=== PATIENT | male | born 1960 | race Caucasian/White ===

== ENCOUNTER 2020-05-20 15:36 | Outpatient (CLI) | payer OTHER, SELFPAY ==
--- NOTE | ~2020-05-20 | CT_ITS ---
EXAMINATION:CT lung screening DATE: 05/20/2020 15:58 INDICATION: Personal history of tobacco dependence. Smoker who quit 10 years ago with 30 pack year hi story. TECHNIQUE: Computed tomography (CT) of the chest was performed without intravenous contrast. Automate d exposure control and iterative reconstruction technique were employed. The dose-length product (DLP ) was 305.18 mGy-cm. COMPARISON: None. FINDINGS: The lungs demonstrate mild atelectasis. There is a 15 mm nodule in lingula in an area of di scoid atelectasis. No pleural effusion. The heart size is normal. There are coronary artery calcifica tions. No pericardial effusion. There is diffuse hepatic steatosis. There are bridging endplate osteo phytes at multiple levels in the spine, consistent with diffuse idiopathic skeletal hyperostosis (DIS H). There is mild chronic anterior wedging of multiple thoracic vertebral bodies. There is severe tho racic spondylosis. IMPRESSION: 1. Lung-RADS category 4B: Suspicious. PET/CT is recommended. Reviewed, dictated and finalized at location B. UAGE TEACHER
== END 2020-05-20 15:37 | disposition home or self-care (01) ==
PROVIDERS: PCP Internal Medicine; Visit Provider Nurse Practitioner Family
DX: Z12.2 Encounter for screening for malignant neoplasm of respiratory organs (principal); Z87.891 Personal history of nicotine dependence; R91.8 Other nonspecific abnormal finding of lung field
CPT/HCPCS: G0297

== ENCOUNTER 2020-06-04 10:24 | Outpatient (CLI) | payer OTHER, SELFPAY ==
--- NOTE | ~2020-06-04 | PE_ITS ---
EXAMINATION: PET skull to mid thigh DATE: 06/04/2020 13:00 INDICATION: Solitary pulmonary nodule. TECHNIQUE: Blood glucose level was 170 mg/dL. 8.231 mCi of 18-fluorodeoxyglucose (18-FDG) was adminis tered i.v. Low dose computed tomography (CT) images were acquired from the base of the brain to the p roximal thighs for attenuation correction and anatomic localization. Automated exposure control was e mployed. Dose-length product (DLP) was 1184 mGy-cm. Positron emission tomography (PET) images were ac quired in the same distribution. COMPARISON: Chest CT 05/20/2020 FINDINGS: Head/neck: There are no pathologically enlarged lymph nodes. Chest: There is a 12 mm nodule in lingula without increased activity. No pleural effusion. The heart size is normal. No pericardial effusion. There are coronary artery calcifications. There are no patho logically enlarged lymph nodes. Abdomen/pelvis/proximal thighs: There is diffuse hepatic steatosis. The spleen, gallbladder, pancreas , adrenal glands, and kidneys are normal. There are no dilated loops of bowel. There is mild periport al lymphadenopathy without increased activity, likely reactive. There is no free intraperitoneal flui d. There are bilateral inguinal hernias containing fat. There is no osseous malignancy. IMPRESSION: 1. 12 mm nodule in the lingula without increased activity, probably benign. Noncontrast low-dose ches t CT is recommended in 6 months. Reviewed, dictated and finalized at location A. HANDISE ASSOCIATE IMPRESSION: 1. 12 mm nodule in the lingula without increased activity, probably benign. Non contrast low-dose chest CT is recommended in 6 months.
[2020-06-04 11:33] LABS: Glucose Point of Care 170 (65-105)
== END 2020-06-04 10:25 | disposition home or self-care (01) ==
PROVIDERS: PCP Internal Medicine; Visit Provider Nurse Practitioner Family
DX: R91.1 Solitary pulmonary nodule (principal)
CPT/HCPCS: 78815; A9552

== ENCOUNTER → 2021-05-06 09:35 | Outpatient (CLI) | payer OTHER, SELFPAY ==
--- NOTE | ~2021-05-06 | CT_ITS ---
EXAMINATION:CT diagnostic chest wo con DATE: 05/06/2021 09:52 INDICATION: Solitary pulmonary nodule. TECHNIQUE: Computed tomography (CT) of the chest was performed without intravenous contrast. Automate d exposure control and iterative reconstruction technique were employed. The dose-length product (DLP ) was 164.31 mGy-cm. COMPARISON: PET CT 06/04/2020, chest CT 05/20/2020 FINDINGS: The lungs demonstrate minimal atelectasis. There is a 10 mm nodule within discoid atelectas is in the lingula, decreased from 14 mm on 05/20/2020. No pleural effusion. The heart size is normal. There are coronary artery calcifications. No pericardial effusion. There is a coarse calcification in right thyroid lobe. There is severe thoracic spondylosis with mild chronic anterior wedging of multi ple vertebral bodies. There are bridging endplate osteophytes at multiple levels in the spine, consis tent with diffuse idiopathic skeletal hyperostosis (DISH). IMPRESSION: 1. Lung-RADS category 2: Benign appearance or behavior. Continue annual screening with noncontrast lo w-dose chest CT in 12 months. Reviewed, dictated and finalized at location B. HER FOREMAN IMPRESSION: 1. Lung-RADS category 2: Benign appearance or behavior. Continue annual screeni ng with noncontrast low-dose chest CT in 12 months.
== END ==
PROVIDERS: PCP Internal Medicine; Visit Provider Physician Assistant
DX: R91.1 Solitary pulmonary nodule (principal)
CPT/HCPCS: 71250

== ENCOUNTER → 2022-12-17 10:56 | Outpatient (CLI) | payer OTHER, SELFPAY ==
--- NOTE | ~2022-12-17 | CT_ITS ---
CT Scan of the Chest without Contrast: Clinical Indication: Lung cancer screening, personal history of nicotine dependence Technique: Contiguous sections were acquired throughout the chest without intravenous contrast. Dose reduction technique was used on this scan by utilizing automated exposure control and iterative recon struction technique. The dose-length product (DLP) was 156.39 mGy-cm. COMPARISON: 05/06/2021 and 05/20/2020 Findings: There is no evidence of any significant mediastinal, hilar or axillary lymphadenopathy. Coronary ansley ry calcifications are present. There is no evidence of pleural or pericardial effusion. The lungs are clear. No pulmonary nodules or infiltrates are noted. Images through the upper abdomen reveal no abnormalities. Impression: Lung RADS 1: Negative. 12 month follow-up screening CT advised. Reviewed, dictated and finalized at [facility]. Impression: Lung RADS 1: Negative. 12 month follow-up screening CT advised.
== END ==
PROVIDERS: PCP Internal Medicine; Visit Provider Internal Medicine
DX: Z12.2 Encounter for screening for malignant neoplasm of respiratory organs (principal); Z87.891 Personal history of nicotine dependence
CPT/HCPCS: 71271

== ENCOUNTER 2023-12-18 08:32 | Outpatient (CLI) | payer OTHER, SELFPAY ==
--- NOTE | ~2023-12-18 | US_ITS ---
EXAMINATION: US right upper quadrant DATE: 12/18/2023 09:07 INDICATION: Epigastric pain TECHNIQUE: Multiple grayscale and Doppler ultrasound images of the right upper quadrant were obtained . COMPARISON: None available. FINDINGS: The visualized portions of the pancreas are normal. The liver is enlarged with increased ec hogenicity. No surface nodularity. Normal hepatopetal flow in the main portal vein. The gallbladder i s normal with no abnormal wall thickening, pericholecystic fluid or stones. The common bile duct darby ures 4 mm. There was no sonographic Hurd sign. IMPRESSION: Hepatomegaly. Echogenic liver, most commonly due to steatosis but also can be seen with hepatitis and fibrosis. Reviewed, dictated and finalized at location K. IMPRESSION: Hepatomegaly. Echogenic liver, most commonly due to steatosis but also can be seen with hepat itis and fibrosis.
== END 2023-12-18 08:33 ==
LOC: MICIMG 08:33
PROVIDERS: PCP Internal Medicine; Visit Provider Internal Medicine
DX: R16.0 Hepatomegaly, not elsewhere classified (principal)
CPT/HCPCS: 76705

== ENCOUNTER 2024-02-03 13:21 | Outpatient (CLI) | payer OTHER, SELFPAY ==
--- NOTE | ~2024-02-03 | CT_ITS ---
EXAMINATION:CT lung screening DATE: 02/03/2024 13:39 INDICATION: Personal history of nicotine dependence. Current smoker with 37.5 pack-year history. TECHNIQUE: Computed tomography (CT) of the chest was performed without intravenous contrast. Automate d exposure control and iterative reconstruction technique were employed. The dose-length product (DLP ) was 196.33 mGy-cm. COMPARISON: Chest CT 12/17/22 FINDINGS: The lungs demonstrate mild atelectasis. A calcified left lung nodule is consistent with old granulomatous disease. No pleural effusion. The heart size is normal. There are coronary artery calc ifications. No pericardial effusion. There is diffuse hepatic steatosis. There is mild chronic anteri or wedging of multiple vertebral bodies. There are bridging endplate osteophytes at multiple levels i n the spine, consistent with diffuse idiopathic skeletal hyperostosis (DISH). There is severe thoraci c spondylosis. IMPRESSION: 1. Lung-RADS category 1: Negative. Continue annual screening with noncontrast low-dose chest CT in 12 months. Reviewed, dictated and finalized at location A. IMPRESSION: 1. Lung-RADS category 1: Negative. Continue annual screening with noncontrast l ow-dose chest CT in 12 months.
== END 2024-02-03 13:22 ==
LOC: MICIMG 13:22
PROVIDERS: PCP Internal Medicine; Visit Provider Internal Medicine
DX: Z12.2 Encounter for screening for malignant neoplasm of respiratory organs (principal); Z87.891 Personal history of nicotine dependence
CPT/HCPCS: 71271

== ENCOUNTER 2024-04-05 08:33 | Outpatient (CLI) | payer OTHER, SELFPAY ==
--- NOTE | ~2024-04-05 | CT_ITS ---
EXAMINATION: CT abdomen w con DATE: 04/05/2024 09:54 INDICATION: Epigastric abdominal pain. TECHNIQUE: Computed tomography (CT) of the abdomen was performed with 100 mL Omnipaque 350 intravenou s contrast. Automated exposure control and iterative reconstruction technique were employed. The dose -length product was 691.15 mGy-cm. COMPARISON: Chest CT 02/03/2024 FINDINGS: The visualized portions of lung bases demonstrate mild atelectasis. No pleural effusion. Th e heart size is normal. There are coronary artery calcifications. No pericardial effusion. There is a 10 mm cyst in the liver. There is diffuse hepatic steatosis. The gallbladder, spleen, pancreas, adre nal glands, and right kidney are normal. There is a 4 mm cyst in left kidney. Aortic atherosclerosis is noted. There is diverticulosis of the colon without evidence of diverticulitis. The visualized por tion of the appendix is normal. There are no dilated loops of bowel. There are no pathologically enla rged lymph nodes. There is no free intraperitoneal fluid. There is mild thoracic spondylosis and mode rate lumbar spondylosis. There are bridging endplate osteophytes at multiple levels in the thoracic s pine, consistent with diffuse idiopathic skeletal hyperostosis (DISH). IMPRESSION: 1. Diffuse hepatic steatosis. Reviewed, dictated and finalized at location A.
[2024-04-05 09:24] LABS: Estimated Glomerular Filt Rate > 60
== END 2024-04-05 08:34 | disposition home or self-care (01) ==
LOC: MICIMG 08:34
PROVIDERS: PCP Internal Medicine; Visit Provider Internal Medicine
DX: R10.13 Epigastric pain (principal); K76.0 Fatty (change of) liver, not elsewhere classified
CPT/HCPCS: 74160; Q9967

== ENCOUNTER 2025-03-28 14:08 | Inpatient (IN) | payer OTHER, SELFPAY ==
--- NOTE | ~2025-03-28 | CT_ITS ---
EXAMINATION: CT chest abdomen pelvis w con DATE: 03/28/2025 16:58 INDICATION: Suspected malignancy. Epigastric mass. Hepatomegaly. TECHNIQUE: Computed tomography (CT) of the chest, abdomen, and pelvis was performed with 100 mL Omnipaque-350 intravenous contrast. Automated exposure control and iterative reconstruction technique were employed. The dose-length product was 888.30 mGy-cm. COMPARISON: 04/05/2024 FINDINGS: CHEST CT: There are multiple scattered bilateral pulmonary nodules and masses with random distribution consistent with metastatic disease measuring up to 4.3 cm in the left lung and 4.1 cm the right lung. No pneumonia, pulmonary edema or pleural effusion. Heart size is normal. Small pericardial effusion. Likely malignant 9.3 x 7.4 x 7.0 cm subcarinal mediastinal mass which exerts mass effect upon the right side of the distal esophagus in the posterior wall of the left atrium. Small sliding-type hiatal hernia. Severe thoracic spondylosis with chronic appearing mild anterior wedging of a few mid thoracic vertebral bodies. ABDOMEN/PELVIS CT: There are multiple hypoenhancing hepatic masses the largest at the caudal right hepatic lobe measuring up to 9.6 cm. Gallbladder, spleen, pancreas, bilateral adrenal glands and right kidney are normal. 9 mm exiting cyst at the posterior medial upper pole of the left kidney. Prostatomegaly measuring 6.1 x 4.1 cm with 3 cm mass at the right peripheral zone of the prostate. Decompressed bladder is unremarkable. No bowel obstruction or abnormal bowel wall thickening. Normal appendix. No pathologically enlarged abdominal or pelvic lymphadenopathy. Small bilateral fat-containing inguinal hernias. Transitional L1 segment with right- sided hypoplastic riblets. Mild to moderate lumbar spondylosis. No suspicious lytic blastic bone lesions. IMPRESSION: 1. Multiple pulmonary nodules and hepatic masses consistent with metastatic disease. As a larger subcarinal mass abutting the esophagus which could also represent metastatic lymphadenopathy although also raises suspicion for a primary malignancy arising from the distal esophagus or the intrathoracic st omach with small sliding-type hiatal hernia. Consider ultrasound-guided liver biopsy. 2. 3 cm mass in the right peripheral zone of the enlarged prostate. Correlate with PSA level. Reviewed, dictated and finalized at location A. IMPRESSION: 1. Multiple pulmonary nodules and hepatic masses consistent with metastatic dis ease. As a larger subcarinal mass abutting the esophagus which could also repre sent metastatic lymphadenopathy although also raises suspicion for a primary ma lignancy arising from the distal esophagus or the intrathoracic stomach with sm all sliding-type hiatal hernia. Consider ultrasound-guided liver biopsy. 2. 3 cm mass in the right peripheral zone of the enlarged prostate. Correlate w ith PSA level.
[2025-03-28 14:15] VITALS: BP 136/69; PULSE 91; RESP 20; TEMP 37.5; O2SAT 98
--- NOTE | 2025-03-28 16:18 | ED.ABDPAIN ---
HPI - Abdominal Pain General Chief Complaint: Abdominal Pain Stated Complaint: abdominal pain, right rib pain Time Seen by Provider: 03/28/25 16:06 History of Present Illness HPI narrative: 64-year-old male presenting to the emergency department with vague abdominal complaints including early satiety, lack of appetite, epigastric palpable mass, nauseousness, dark urine, unintentional 14 lb weight loss in 2 weeks. Recently been seen by his primary doctor for lesion on his tongue which is scheduled to be biopsied and excised on outpatient basis in the coming few days. Denies any fever, chills, night sweats. No history of malignancy or strong family history of malignancy. Denies any current smoking use. Previously drank alcohol but no longer. Denies any drug use. Has not tried anything for symptom control at home. Related Data Home Medications ?Medication ?Instructions ?Recorded ?Confirmed ?Last Taken ?Type hydrocodone 7.5 mg-acetaminophen 1 tablet PO Q8H PRN pain 04/12/20 03/28/25 03/25/25 History 325 mg tablet (Eustace) atorvastatin 20 mg tablet 20 mg PO QHS 04/24/21 03/28/25 03/27/25 History ascorbic acid (vitamin C) 1,000 mg 1,000 mg PO QHS 03/28/25 03/28/25 03/27/25 History tablet (Vitamin C) aspirin 81 mg tablet 81 mg PO QHS 03/28/25 03/28/25 03/27/25 History cinnamon bark 500 mg capsule 500 mg PO QHS 03/28/25 03/28/25 03/27/25 History (Cinnamon) [id number]-[id number] tablet 1 tablet PO QHS 03/28/25 03/28/25 03/27/25 History Allergies Allergy/AdvReac Type Severity Reaction Status Date / Time No Known Allergies Allergy Verified 03/28/25 21:32 Review of Systems Review of Systems: As reviewed [facility]PI [facility] Past Medical History Medical History Pulmonary nodule History of neck problems History of back problems Testicular hypofunction Hyperlipidemia Sleep apnea, unspecified Surgical History Surgical History History of colonoscopy History of surgery on arm Family History Family History (Updated 03/28/25 @ 21:49 by Giselle Gil RN) Father Cerebrovascular accident, Onset Age: 65 Sibling Family history of kidney disease, Onset Age: 34 Family history of congestive heart failure, Onset Age: 50 Family history of sleep apnea Coronary artery disease of bypass graft of [place] heart with stable angina pectoris Mother Family history of malignant neoplasm of cervix, Onset Age: 63 Social History Social History Social History: Quit cigarettes 2008 but continues to smoke a cigars about 1-2 per day. Smoking packs per day: 1.5 Smoking cigarettes per day: 30.0 Years smoked: 40 Smoking pack-years: 60.00 Smoking status: Former smoker Second hand tobacco smoke exposure: Yes Smoking end date: 06/14/03 Alcohol intake: former Drinks per week: 12 Alcohol use details: Beers Substance use: never Lack of Transportation: No Lack of Food: Never True Current Housing: I Have Housing Concerned About Future Housing: No Difficulty Paying Gas/Electric Bills: No Difficulty Paying for Meds: No Currently Unemployed: No Education: High School Diploma/GED Difficulty w/ Childcare or Family Care: No Spiritual care concerns: No Exam Narrative: GENERAL: [Well-appearing, well-nourished, and in no acute distress.] HEAD: [Normocephalic, atraumatic.] EYES: [PERRLA and EOMI.] ENT: Nares clear, no rhinorrhea or epistaxis. Mucous membranes moist. Dry lesion to the right lateral tongue edge, nontender, not anterior bleeding. NECK: Supple. CHEST: [Clear to auscultation. No respiratory distress.] HEART: [Regular rate and rhythm]. No murmur heard. [Normal peripheral pulses.] ABDOMEN: Mildly distended abdomen but soft. Tender in the epigastrium with a palpable epigastric mass. Hepatomegaly palpable approximately 4 cm below the right costal edge. Tenderness reproducible right rib cage but no overlying skin changes. No overlying deformity or step-off. EXTREMITIES: Normal range of motion. [No edema.] SKIN: Warm, dry, no rash. NEURO: [No focal deficits]. Alert and oriented [x3.] PSYCH: [Normal mood and affect.] Course Vital Signs Vital signs: Vital Signs Temperature 37.5 C 03/28/25 14:15 Pulse Rate 91 03/28/25 14:15 Respiratory Rate 20 03/28/25 14:15 Blood Pressure 136/69 03/28/25 14:15 Pulse Oximetry 98 03/28/25 14:15 Oxygen Delivery Room Air 03/28/25 14:15 Temperature 37.3 C 03/28/25 21:15 Pulse Rate 99 03/28/25 21:15 Respiratory Rate 16 03/28/25 21:15 Blood Pressure 135/78 03/28/25 21:15 Pulse Oximetry 94 03/28/25 21:15 Oxygen Delivery Room Air 03/28/25 14:15 MDM - Abdominal Pain MDM Narrative Medical decision making narrative: 64-year-old male presenting to the emergency department with vague abdominal complaints including early satiety, lack of appetite, epigastric palpable mass, nauseousness, dark urine, unintentional 14 lb weight loss in 2 weeks. Recently been seen by his primary doctor for lesion on his tongue which is scheduled to be biopsied and excised on outpatient basis in the coming few days. Denies any fever, chills, night sweats. No history of malignancy or strong family history of malignancy. Denies any current smoking use. Previously drank alcohol but no longer. Denies any drug use. Has not tried anything for symptom control at home. Examination shows some concerning abdominal findings including mildly distended abdomen but soft. Tender in the epigastrium with a palpable epigastric mass. Hepatomegaly palpable approximately 4 cm below the right costal edge. Tenderness reproducible right rib cage but no overlying skin changes. No overlying deformity or step-off. Patient is hemodynamically stable. No signs of icterus or jaundice examination. He is awake alert oriented and mentating appropriately. Given his vague complaints as well as weight loss and abdominal findings concern for malignancy is high. Discussed this with the patient and will obtain a broad workup including CT scans of the chest abdomen pelvis with IV contrast will laboratory studies urinalysis ordered. CT scan was independently reviewed and appears to have multiple nodule risen metastatic disease evident. Radiology confirms subcarinal mass likely esophageal malignancy with metastatic lymphadenopathy as well as diffuse pulmonary nodules and hepatic masses. No leukocytosis. Elevated liver function panel likely secondary to the metastatic disease. I updated the patient and the family members regarding the findings on my concern for metastatic malignancy in cancer based on findings and historical features. Discussed the case with the oncologist Dr. John ferrara as well as the GI doctor Dr. Yepez regarding plan of care. Patient will be made NPO for a endoscopy and possible biopsy tomorrow morning. Spoke to the hospitalist who accepted the patient to a medical-surgical bed for admission and evaluation tomorrow by specialists from multiple teams. Discussed multiple options and treatment plans with the family members and goals of care. They would like to pursue treatment options and admission for biopsy and remaining evaluation. Admission orders now placed. Medical Records Attestation: I reviewed the patient's medical records. Lab Data Attestation: I reviewed the patient's lab results. 03/28/25 16:18 03/28/25 16:41 Labs: Lab Results 03/28/25 03/28/25 03/28/25 Range/Units 16:18 16:19 16:41 WBC 8.5 (4.5-10.0) K/mm3 RBC 5.47 (4.6-6.20) M/mm3 Hgb 14.4 (14.0-18.0) g/dL Hct 46.6 (42.0-52.0) % MCV 85.2 (80-100) fl MCH 26.3 (26-34) pg MCHC 30.9 L (32-36) g/dl RDW 14.9 H (11.5-14.5) % Plt Count 273 (150-375) k/mm3 MPV 9.5 (7.4-10.4) fl Immature Gran % (Auto) 0.6 H (0-0.5) % Neut % (Auto) 77.5 H (45.5-73.1) % Lymph % (Auto) 10.7 L (18.3-44.2) % [place] % (Auto) 10.2 H (2.6-8.5) % Eos % (Auto) 0.4 (0-4.4) % Baso % (Auto) 0.6 (0.2-1.2) % Lymph # (Auto) 0.91 (0.9-3.2) K/mm3 [place] # (Auto) 0.9 H (0.1-0.6) K/mm3 Eos # (Auto) 0.0 (0-0.3) K/mm3 Baso # (Auto) 0.1 (0.0-0.1) K/mm3 Abs Immat Gran (auto) 0.05 H (0.00-0.031) K/mm3 Absolute Neuts (auto) 6.6 (1.3-6.7) K/mm3 Absolute Nucleated RBC 0.000 (0.0-0.012) K/mm3 Nucleated RBC % 0.0 (0.0-0.2) % PT 14.5 (11.1-14.7) Seconds INR 1.1 APTT 36.3 (22.3-36.8) Seconds Sodium 134 L (137-145) mmol/L Potassium 4.4 (3.4-5.0) mmol/L Chloride 95 L (98-107) mmol/L Carbon Dioxide 28 (22-30) mmol/L Anion Gap 11 (4-12) mmol/L BUN 11 (9-20) mg/dL Creatinine 0.84 0.90 (0.7-1.3) mg/dL Estim Creat Clear Calc 86 81 ml/min Estimated GFR > 60 > 60 (59 - ) Glucose 100 (65-110) mg/dL Calcium 9.6 (8.4-10.2) mg/dL Total Bilirubin 1.7 H (0.2-1.3) mg/dL AST 149 H (17-59) U/L ALT 107 H (6-50) U/L Alkaline Phosphatase 602 H (38-126) U/L Total Creatine Kinase 91 (55-170) U/L Total Protein 9.1 H (6.3-8.2) g/dL Albumin 4.2 (3.5-5.1) g/dL Lipase 407 H (23-300) U/L Urine Color (Yellow) Urine Appearance (Clear) Urine pH (5.0-9.0) Ur Specific [place] (1.001-1.035) Urine Protein (Negative) mg/dL Urine Glucose (UA) (Negative) mg/dL Urine Ketones (Negative) mg/dL Ur Blood (Man) (Negative) Urine Nitrate (Negative) Urine Bilirubin (Negative) Urine Urobilinogen (<2.0) mg/dL Leukocyte Esterase Rfl (Negative) JOSLYN/UL Urine RBC (0-2) /hpf Urine WBC (0-3) /hpf Ur Squamous Epith Cells (Few) /hpf Urine Bacteria /hpf Urine Casts 10/15/25 Range/Units 17:00 WBC (4.5-10.0) K/mm3 RBC (4.6-6.20) M/mm3 Hgb (14.0-18.0) g/dL Hct (42.0-52.0) % MCV (80-100) fl MCH (26-34) pg MCHC (32-36) g/dl RDW (11.5-14.5) % Plt Count (150-375) k/mm3 MPV (7.4-10.4) fl Immature Gran % (Auto) (0-0.5) % Neut % (Auto) (45.5-73.1) % Lymph % (Auto) (18.3-44.2) % [place] % (Auto) (2.6-8.5) % Eos % (Auto) (0-4.4) % Baso % (Auto) (0.2-1.2) % Lymph # (Auto) (0.9-3.2) K/mm3 [place] # (Auto) (0.1-0.6) K/mm3 Eos # (Auto) (0-0.3) K/mm3 Baso # (Auto) (0.0-0.1) K/mm3 Abs Immat Gran (auto) (0.00-0.031) K/mm3 Absolute Neuts (auto) (1.3-6.7) K/mm3 Absolute Nucleated RBC (0.0-0.012) K/mm3 Nucleated RBC % (0.0-0.2) % PT (11.1-14.7) Seconds INR APTT (22.3-36.8) Seconds Sodium (137-145) mmol/L Potassium (3.4-5.0) mmol/L Chloride (98-107) mmol/L Carbon Dioxide (22-30) mmol/L Anion Gap (4-12) mmol/L BUN (9-20) mg/dL Creatinine (0.7-1.3) mg/dL Estim Creat Clear Calc ml/min Estimated GFR (59 - ) Glucose (65-110) mg/dL Calcium (8.4-10.2) mg/dL Total Bilirubin (0.2-1.3) mg/dL AST (17-59) U/L ALT (6-50) U/L Alkaline Phosphatase (38-126) U/L Total Creatine Kinase (55-170) U/L Total Protein (6.3-8.2) g/dL Albumin (3.5-5.1) g/dL Lipase (23-300) U/L Urine Color Dark yellow (Yellow) Urine Appearance Clear (Clear) Urine pH 6.0 (5.0-9.0) Ur Specific [place] 1.025 (1.001-1.035) Urine Protein Trace (Negative) mg/dL Urine Glucose (UA) Negative (Negative) mg/dL Urine Ketones 1+ H (Negative) mg/dL Ur Blood (Man) Negative (Negative) Urine Nitrate Negative (Negative) Urine Bilirubin 1+ H (Negative) Urine Urobilinogen 2.0 H (<2.0) mg/dL Leukocyte Esterase Rfl Trace H (Negative) JOSLYN/UL Urine RBC 0-2 (0-2) /hpf Urine WBC 0-5 (0-3) /hpf Ur Squamous Epith Cells None seen (Few) /hpf Urine Bacteria None seen /hpf Urine Casts 0-2 Imaging Data Attestation: I personally reviewed and interpreted this imaging study as follows: My impression: Impressions Chest/Abdomen/Pelvis CT 03/28/25 17:01 IMPRESSION: 1. Multiple pulmonary nodules and hepatic masses consistent with metastatic disease. As a larger subcarinal mass abutting the esophagus which could also represent metastatic lymphadenopathy although also raises suspicion for a primary malignancy arising from the distal esophagus or the intrathoracic stomach with small sliding-type hiatal hernia. Consider ultrasound-guided liver biopsy. 2. 3 cm mass in the right peripheral zone of the enlarged prostate. Correlate with PSA level. Radiologist's impression: ITS Impressions Chest/Abdomen/Pelvis CT 03/28/25 17:01 IMPRESSION: 1. Multiple pulmonary nodules and hepatic masses consistent with metastatic disease. As a larger subcarinal mass abutting the esophagus which could also represent metastatic lymphadenopathy although also raises suspicion for a primary malignancy arising from the distal esophagus or the intrathoracic stomach with small sliding-type hiatal hernia. Consider ultrasound-guided liver biopsy. 2. 3 cm mass in the right peripheral zone of the enlarged prostate. Correlate with PSA level. Discharge Plan Discharge Clinical Impression: Concern about cancer without diagnosis, Esophageal mass, Multiple pulmonary nodules, Liver masses Patient Disposition: Still a Patient Condition: Stable
--- OUTSIDE RECORDS SUMMARY | 2025-03-28 16:26 | XMS_ITS | Clinical Summary ---
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 Gender Identity Not on file Sexual Orientation Not on file Plan of Treatment Health Maintenance Due Date Last Done Comments Colorectal Cancer Screening Colonoscopy (10 Years) 1961 Annual Physical 1964 Hepatitis C 09/07/1979 Pneumococcal Vaccine: 50+ Years (1 of 1 - PCV) 09/07/2011 Influenza Adult (#1) 2025 03/21/2024, 04/02/2023, 04/13/2022, Additional history exists DTaP, Tdap and Td Vaccines (2 - Td or Tdap) 08/24/2027 08/23/2017 RSV Immunization or 60+ Years (1 - 1-dose 75+ series) 2036 Zoster Vaccines Completed 12/03/2021, 06/13/2021 COVID-19 Vaccine Completed 03/30/2024, , 03/26/2023, Additional history exists Hepatitis A Vaccines Aged Out No long er eligible based on patient's age to complete this topic Meningococcal B Vaccine Aged Out No l onger eligible based on patient's age to complete this topic Meningococcal Vaccine Aged Out No kelsi danuta eligible based on patient's age to complete this topic RSV Immunizations Under 20 Months Aged Out No longer eligible based on patient's age to complete this topic Insurance [employer] Care Teams Director Talent Relationship Specialty Start Date End Date Jordan Arrieta MD [address] [phone] PCP - General INTERNAL MEDICINE 04/20/24
--- OUTSIDE RECORDS SUMMARY | 2025-03-28 16:26 | XMS_ITS | Data Portability ---
Author Organization [facility], Main Office Address [address] [place] [address] Care Team Providers Care Wage And Salary Administrator Name Role Phone VIK ARRIETA Primary Care Provider Assessment No assessment recorded. Plan of Treatment Reminders Order Date Submit Date Provider Last Modified By Organization Details Last Modified Time Details Appointments Any 10 2024 04:00P Shanta Arrieta MD Not available Not available Not available Surgery 2024 10:00A Shanta Hernandez MD Not available Not available Not available Post-Op 15 2024 03:15P Shanta Hernandez MD Not available Not available Not available Lab HbA1c (hemoglob in A1c), blood 2024 025 [id number] [facility], [address] , [place], [address], 11/08/2024 09:56:28 lipid panel, serum 2024 025 [id number] [facility], [address] , [place], [address], 11/08/2024 09:56:27 CMP, serum or plasma 2024 025 [id number] [facility], [address] , [place], [address], 11/08/2024 09:56:27 TSH, serum or plasma 2024 025 [id number] [facility], [address] , [place], [address], 11/08/2024 09:56:27 T4, free, serum 2024 025 [id number] [facility], [address], [place], [address], 11/08/2024 09:56:27 CBC w/ auto diff 2024 [id number] [facility], [address], [place], [address], 11/08/2024 09:56:28 JUDE + rf (antinucl ear antibodie s + rheumatoi d factor), quantitat sarah, serum 2024 025 [facility], [address] , [place], [address], 10/31/2024 11:47:59 C-reactiv e protein, quantitat sarah, serum or plasma 2024 025 [facility], [address] [facility], [place], [address], 11/21/2024 23:29:22 dsDNA Ab, serum 2024 [facility]25 [facility], [address] , [place], [address], 11/21/2024 23:29:20 scleroder ma (scl-70) Ab, serum 2024 025 [facility], [address] [facility], [place], [address], 10/31/2024 11:47:59 ccp (cyclic citrullin ated peptide) iga+igg, serum 2024 025 [facility], [address] [facility], [place], [address], 10/31/2024 11:47:53 sjogren antibody panel (ssa, ssb, ro, la), serum 2024 025 [facility], [address] [facility], [place], [address], 10/31/2024 11:47:54 rf (rheumato id factor), serum 2024 025 [facility], [address], [place], [address], 11/21/2024 23:29:21 Guzman BISHOP Ab + [employer] FLOOR TECH BISHOP Ab, quant immunoass ay, serum 2024 025 [facility], [address], [place], [address], 10/31/2024 11:47:58 uric acid, serum or plasma 2024 025 [facility], [address], [place], [address], 11/21/2024 23:29:16 drug screen, urine 2024 025 [id number] [facility], [address], [facility], [place], [address], 11/08/2024 09:56:28 amylase, serum or plasma 2023 024 [id number] [facility], [address], [place], [address], 04/05/2024 16:47:22 lipase, serum or plasma 2023 024 [id number] [facility], [address] , [place], [address], 04/05/2024 16:47:22 HbA1c (hemoglob in A1c), blood 2023 024 [id number] [facility], [address] , [place], [address], 04/05/2024 16:47:22 lipid panel, serum 2023 024 [id number] [facility], [address], [place], [address], 04/05/2024 16:47:21 CMP, serum or plasma 2023 024 [facility], [address], [place], [address], 04/05/2024 16:47:21 CBC w/ auto diff 2023 024 [facility], [address], [place], [address], 04/05/2024 16:47:21 Referral None recorded. Procedures None recorded. Surgeries excision, tongue lesion, anterior (SURG) 2024 025 [email or web address] Not available 03/15/2025 11:10:01 Imaging None recorded. Medication Orders None recorded. Patient TargetsNo targets recorded. Patient Instructions Encounter Date Encounter Id Patient Instructions Last Modified By Organization Details Last Modified Time 03/21/2024 [id number] Epigastric abdominal pain etiology is obscure. 2. Hyperlipidemia 3. Type 2 diabetes uncontrolled and obesity class one. Plan to try to see if we can get a CT scan of the abdomen with contrast along with blood work. Needs to be on diabetic medication but has refused to take much of the medication in the past. Will check a CBC, CMP, lipid, hemoglobin A1c, amylase, lipase and try to set up with a CT scan of the abdomen or abdomen and pelvis preferably with contrast. May need further evaluation since there has been elevation of liver enzymes in the past. Likely secondary to the fatty liver. Additional Orders - Directives - Recommendations 1. CT of scan of the abdomen or abdomen and pelvis with contrast for persistent recurrent epigastric abdominal pain that is been on responsive to medical management. Keep Appointment: Diana 05 04 2024 10:00 AM [place] Keep Appointment: Diana 05 04 2024 10:00 AM [place] Portions of the record may have been created with voice recognition software. Occasional wrong-word or s ound-a-like substitutions may have occurred due to the inherent limitations of voice recognition software. Read the chart carefully and recognize, using context, where substitutions have occurred. Not available 03/21/2024 15:03:55 05/02/2024 [id number] Hyperlipidemia, type 2 diabetes uncontrolled, obstructive sleep apnea as well as chronic pain syndrome all clinically stable. Last hemoglobin A1c was 9.2. Was placed on glimepiride 2 mg once daily has some subjective improvement in his monitoring of the blood sugar. Will continue on current Rx follow-up in six months. Will check a fructosamine level in the next several weeks. Follow Up: 6 Months Approximate Date: 10/29/2024 Created: Vik Arrieta M.D. 05.02.2024 03:30 PM Portions of the record may have been created with voice recognition software. Occasional wrong-word or s ound-a-like substitutions may have occurred due to the inherent limitations of voice recognition software. Read the chart carefully and recognize, using context, where substitutions have occurred. [email or web address] Not available 05/02/2024 16:30:46 10/31/2024 [id number] While patient evaluation risk assessment stable. Follow-up for hyperlipidemia, type 2 diabetes, sleep apnea and chronic pain syndrome which is clinically stable. Will check blood work consisting of CBC, CMP, lipid, hemoglobin A1c, PSA and urine drug screen. Continue on current Rx follow-up in six months Keep Appointment: Wed 09:50 AM [place] Portions of record are template driven. When necessary additional context will be provided. Additionally some portions have been created with voice recognition software. Occasional wrong-word or s ound-a-like substitutions may have occurred due to the inherent limitations of voice recognition software. Read the chart carefully and recognize, using context, where substitutions may have occurred. Created: Vik Arrieta M.D. 10.31.2024 10:47 AM [email or web address] Not available 10/31/2024 11:47:13 02/21/2025 [id number] Tongue lesion se t up with ENT. Additional Orders - Directives - Recommendations 1. ENT consult with Dr. Angel for ulcerative tongue lesion Keep Appointment: Wed 09:50 AM [place] Portions of record are template driven. When necessary additional context will be provided. Additionally some portions have been created with voice recognition software. Occasional wrong-word or s ound-a-like substitutions may have occurred due to the inherent limitations of voice recognition software. Read the chart carefully and recognize, using context, where substitutions may have occurred. Created: Vik Arrieta M.D. 02.21.2025 04:12 PM Not available 02/21/2025 17:12:48 Reason for Referral None Reported. Results Created Date Observation Date Name Description Value Unit Range Abnormal Flag Note LastModifiedBy Organization Detail LastModifiedTime 04/12/2004/13/2024 LIPID PANEL , STAND ANITA cholesterol, total 156 mg/dL <200 normal Not Available [facility] [id number] [place] [address], [address], 04/13/2024 18:15:19 04/12/2004/13/2024 LIPID PANEL , STAND ANITA HDL cholesterol 35 mg/dL > or = 40 low Not Available [facility] [address] [facility] [place], [address], 04/13/2024 18:15:19 04/12/2004/13/2024 LIPID PANEL , STAND ANITA triglyceride s 250 mg/dL <150 high If a non-f astin g speci men was colle cted, consi reagan repea t trigl yceri de testi ng on a fasti ng speci men if clini rubin indic ated. Landry lucas et al. J. of Clin. Lipid ol. 2015; 9:129 -169. Not Available [facility] [address] [place] [address], [address], 04/13/2024 18:15:19 04/12/2004/13/2024 LIPID PANEL , STAND ANITA LDL-choleste rol 88 mg/dL _(dakotah c) normal Refer ence range : <100 Susan able range <100 mg/dL for prima ry preve ntion ; <70 mg/dL for patie nts with CHD or diabe tic patie nts with > or = 2 CHD risk facto rs. LDL-C is now calcu lated using the Jennifer n-Hop kins yasmineu ama n, which is a valid ated novel fady gan than the Fried daisy equat ion in the estim ation of LDL-C . Jennifer hines SS et al. KERLINE. 2013; 310(1 9): 2061- 2068 (http ://ed ucati on.Qu estDi Symptifys. com/f aq/FA Q164) Not Available [address], [address], 04/13/2024 18:15:19 04/12/2004/13/2024 LIPID PANEL , STAND ANITA chol/HDLC ratio 4.5 (calc ) <5.0 normal Not Available [address], [address], 04/13/2024 18:15:19 04/12/20 24 04/13/2024 LIPID PANEL , STAND ANITA non HDL cholesterol 121 mg/dL _(dakotah c) <130 normal For patie nts with diabe lori plus 1 major ASCVD risk facto r, treat ing to a non-H DL-C goal of <100 mg/dL (LDL- C of <70 mg/dL ) is consi dered a thera peuti c optio n. Not Available [address], [address], 04/13/2024 18:15:19 04/12/20 24 04/13/2024 COMPR EHENS SARAH METAB OLIC PANEL , PLASM A glucose 96 mg/dL 65-99 normal Fasti ng refer ence inter brijesh Not Available [address], [address], 04/13/2024 18:15:21 04/12/20 24 04/13/2024 COMPR EHENS SARAH METAB OLIC PANEL , PLASM A urea nitrogen (BUN) 14 mg/dL 7-25 normal Not Available [facility] [address], [address], 04/13/2024 18:15:21 04/12/20 24 04/13/2024 COMPR EHENS SARAH METAB OLIC PANEL , PLASM A creatinine 0.82 mg/dL 0.70-1 .35 normal Not Available [facility] [address], [address], 04/13/2024 18:15:21 04/12/20 24 04/13/2024 COMPR EHENS SARAH METAB OLIC PANEL , PLASM A eGFR 99 mL/mi n/1.7 3m2 > or = 60 normal Not Available [address], [address], 04/13/2024 18:15:21 04/12/20 24 04/13/2024 COMPR EHENS SARAH METAB OLIC PANEL , PLASM A BUN/creatini ne ratio SEE NOTE: (calc ) 6-22 Not Repor suki: BUN and Creat inine are withi n refer ence range . Not Available [address], [address], 04/13/2024 18:15:21 04/12/20 24 04/13/2024 COMPR EHENS SARAH METAB OLIC PANEL , PLASM A sodium 143 mmol/ L 135-14 6 normal Not Available [address], [address], 04/13/2024 18:15:21 04/12/20 24 04/13/2024 COMPR EHENS SARAH METAB OLIC PANEL , PLASM A potassium 4.0 mmol/ L 3.4-4. 8 normal Not Available [address], [address], 04/13/2024 18:15:21 04/12/20 24 04/13/2024 COMPR EHENS SARAH METAB OLIC PANEL , PLASM A chloride 101 mmol/ L 98-110 normal Not Available [address], [address], 04/13/2024 18:15:21 04/12/20 24 04/13/2024 COMPR EHENS SARAH METAB OLIC PANEL , PLASM A carbon dioxide 20 mmol/ L 20-32 normal Not Available [address], [address], 04/13/2024 18:15:21 04/12/20 24 04/13/2024 COMPR EHENS SARAH METAB OLIC PANEL , PLASM A calcium 9.1 mg/dL 8.6-10 .3 normal Not Available [address], [address], 04/13/2024 18:15:21 04/12/20 24 04/13/2024 COMPR EHENS SARAH METAB OLIC PANEL , PLASM A protein, total 6.8 g/dL 6.4-8. 4 normal Not Available [address], [address], 04/13/2024 18:15:21 04/12/2004/13/2024 COMPR EHENS SARAH METAB OLIC PANEL , PLASM A albumin 4.4 g/dL 3.6-5. 1 normal Not Available [address], [address], 04/13/2024 18:15:21 04/12/20 24 04/13/2024 COMPR EHENS SARAH METAB OLIC PANEL , PLASM A globulin 2.4 g/dL_ (calc ) 2.2-4. 0 normal Not Available [address], [address], 04/13/2024 18:15:21 04/12/20 24 04/13/2024 COMPR EHENS SARAH METAB OLIC PANEL , PLASM A albumin/glob ulin ratio 1.8 (calc ) 0.9-2. 3 normal Not Available [address], [address], 04/13/2024 18:15:21 04/12/2004/13/2024 COMPR EHENS SARAH METAB OLIC PANEL , PLASM A bilirubin, total 0.4 mg/dL 0.2-1. 2 normal Not Available [address], [address], 04/13/2024 18:15:21 04/12/20 24 04/13/2024 COMPR EHENS SARAH METAB OLIC PANEL , PLASM A alkaline phosphatase 58 U/L 35-144 normal Not Available [facility] [employer] [address], [address], 04/13/2024 18:15:21 04/12/20 24 04/13/2024 COMPR EHENS SARAH METAB OLIC PANEL , PLASM A AST 28 U/L 10-35 normal Not Available [address], [address], 04/13/2024 18:15:21 04/12/20 24 04/13/2024 COMPR EHENS SARAH METAB OLIC PANEL , PLASM A ALT 57 U/L 9-46 high Not Available [address], [address], 04/13/2024 18:15:21 04/12/20 24 04/13/2024 CBC (INCL UDES DIFF/ PLT) white blood cell count 3.6 thous and/u L 3.8-10 .8 low Not Available [address], [address], 04/13/2024 18:15:22 04/12/20 24 04/13/2024 CBC (INCL UDES DIFF/ PLT) red blood cell count 5.18 salomón on/uL 4.20-5 .80 normal Not Available [address], [address], 04/13/2024 18:15:22 04/12/20 24 04/13/2024 CBC (INCL UDES DIFF/ PLT) hemoglobin 15.3 g/dL 13.2-1 7.1 normal Not Available [address], [address], 04/13/2024 18:15:22 04/12/20 24 04/13/2024 CBC (INCL UDES DIFF/ PLT) hematocrit 48.7 % 38.5-5 0.0 normal Not Available [facility] [address], [address], 04/13/2024 18:15:22 04/12/2004/13/2024 CBC (INCL UDES DIFF/ PLT) MCV 94.0 fL 80.0-1 00.0 normal Not Available [facility] [address], [address], 04/13/2024 18:15:22 04/12/2004/13/2024 CBC (INCL UDES DIFF/ PLT) MCH 29.5 pg 27.0-3 3.0 normal Not Available [facility] [address], [address], 04/13/2024 18:15:22 04/12/2004/13/2024 CBC (INCL UDES DIFF/ PLT) MCHC 31.4 g/dL 32.0-3 6.0 low For adult s, a sligh t decre ase in the calcu lated MCHC value (in the range of 30 to 32 g/dL) is most likel y not clini rubin signi raquel t; gregorio er, it shoul d be inter prete d with [facility] with other red cell samm eters and the patie nt's clini dakotah condi tion. Not Available [facility] [address], [address], 04/13/2024 18:15:22 04/12/2004/13/2024 CBC (INCL UDES DIFF/ PLT) RDW 12.8 % 11.0-1 5.0 normal Not Available [facility] [address], [address], 04/13/2024 18:15:22 04/12/2004/13/2024 CBC (INCL UDES DIFF/ PLT) platelet count 132 thous and/u L 140-40 0 low Not Available [facility] [address], [address], 04/13/2024 18:15:22 04/12/20 24 04/13/2024 CBC (INCL UDES DIFF/ PLT) MPV 10.9 fL 7.5-12 .5 normal Not Available [address], [address], 04/13/2024 18:15:22 04/12/20 24 04/13/2024 CBC (INCL UDES DIFF/ PLT) absolute neutrophils 2102 cells /uL 1500-7 800 normal Not Available [address], [address], 04/13/2024 18:15:22 04/12/2004/13/2024 CBC (INCL UDES DIFF/ PLT) absolute lymphocytes 990 cells /uL 850-39 00 normal Not Available [address], [address], 04/13/2024 18:15:22 04/12/20 24 04/13/2024 CBC (INCL UDES DIFF/ PLT) absolute monocytes 346 cells /uL 200-95 0 normal Not Available [address], [address], 04/13/2024 18:15:22 04/12/20 24 04/13/2024 CBC (INCL UDES DIFF/ PLT) absolute eosinophils 112 cells /uL 15-500 normal Not Available [address], [address], 04/13/2024 18:15:22 04/12/20 24 04/13/2024 CBC (INCL UDES DIFF/ PLT) absolute basophils 50 cells /uL 0-200 normal Not Available [address], [address], 04/13/2024 18:15:22 04/12/20 24 04/13/2024 CBC (INCL UDES DIFF/ PLT) neutrophils 58.4 % normal Not Available [address] [place], [address], 04/13/2024 18:15:22 04/12/20 24 04/13/2024 CBC (INCL UDES DIFF/ PLT) lymphocytes 27.5 % normal Not Available [facility] [address], [address], 04/13/2024 18:15:22 04/12/20 24 04/13/2024 CBC (INCL UDES DIFF/ PLT) monocytes 9.6 % normal Not Available [facility] [address] [place], [address], 04/13/2024 18:15:22 04/12/20 24 04/13/2024 CBC (INCL UDES DIFF/ PLT) eosinophils 3.1 % normal Not Available [address], [address], 04/13/2024 18:15:22 04/12/20 24 04/13/2024 CBC (INCL UDES DIFF/ PLT) basophils 1.4 % normal Not Available [address], [address], 04/13/2024 18:15:22 04/12/20 24 04/13/2024 AMYLA SE amylase 47 U/L 21-101 normal Not Available [address], [address], 04/13/2024 18:15:23 04/12/20 24 04/13/2024 HEMOG LOBIN A1C hemoglobin A1C 9.2 %_of_ total _HGB <5.7 high For someo ne witho ut known diabe lori, a hemog lobin A1c value of 6.5% or great er indic ates that they may have diabe lori and this shoul d be confi rmed with a follo w-up test. For someo ne with known diabe lori, a value <7% indic ates that their diabe lori is well contr olled and a value great er than or equal to 7% indic ates subop timal contr ol. A1c targe ts shoul d be indiv idual ized based on durat ion of diabe lori, age, comor bid condi tions , and other consi derat ions. Curre ntly, no conse nsus exist s regar ding use of hemog lobin A1c for diagn osis of diabe lori for child terence. Not Available [facility] [address] [place], [address], 04/13/2024 18:15:24 04/12/20 24 04/13/2024 LIPAS E lipase 94 U/L 7-60 high Not Available [facility] [address], [address], 04/13/2024 18:15:25 05/03/20 24 05/09/2024 FRUCT OSAMI NE fructosamine 230 umol/ L 205-28 5 SAMPL E SLIGH TLY LIPEM IC. Not Available [facility] [address] [place] [address] [place], [address], 05/09/2024 03:13:42 11/21/19 25 11/21/2024 LIPID PANEL , STAND ANIAT cholesterol, total 161 mg/dL <200 normal Not Available [facility] [address], [address], 11/21/2024 23:29:15 11/21/19 25 11/21/2024 LIPID PANEL , STAND ANITA HDL cholesterol 36 mg/dL > or = 40 low Not Available [facility] [address] [place], [address], 11/21/2024 23:29:15 11/21/19 25 11/21/2024 LIPID PANEL , STAND ANITA triglyceride s 259 mg/dL <150 high If a non-f astin g speci men was colle cted, consi reagan repea t trigl yceri de testi ng on a fasti ng speci men if clini rubin indic ated. Landry lucas et al. J. of Clin. Lipid ol. 2015; 9:129 -169. Not Available [facility] [address] [place], [address], 11/21/2024 23:29:15 11/21/19 25 11/21/2024 LIPID PANEL , STAND ANITA LDL-choleste rol 91 mg/dL _(dakotah c) normal Refer ence range : <100 Susan able range <100 mg/dL for prima ry preve ntion ; <70 mg/dL for patie nts with CHD or diabe tic patie nts with > or = 2 CHD risk facto rs. LDL-C is now calcu lated using the Jennifer n-Hop kins calcu ama n, which is a valid ated novel soniao d patricki andrey heath r accur acy than the Fried daisy equat ion in the estim ation of LDL-C . Jennifer hines SS et al. KERLINE. 2013; 310(1 9): 2061- 2068 (http ://ed ucati on.[employer]. com/f aq/FA Q164) Not Available [facility] [address] [address], [place], [address], 11/21/2024 23:29:15 11/21/1911/21/2024 LIPID PANEL , STAND ANITA chol/HDLC ratio 4.5 (calc ) <5.0 normal Not Available [facility] [address], [place], [address], 11/21/2024 23:29:15 11/21/1911/21/2024 LIPID PANEL , STAND ANITA non HDL cholesterol 125 mg/dL _(dakotah c) <130 normal For patie nts with diabe lori plus 1 major ASCVD risk facto r, treat ing to a non-H DL-C goal of <100 mg/dL (LDL- C of <70 mg/dL ) is consi dered a thera peuti c optio n. Not Available [facility] [address] [address], [place], [address], 11/21/2024 23:29:15 11/21/19 25 11/21/2024 URIC ACID uric acid 6.1 mg/dL 4.0-8. 0 normal Thera adan leigh t for gout patie nts: <6.0 mg/dL Not Available [address], [address], 11/21/2024 23:29:16 11/21/1911/21/2024 COMPR EHENS SARAH METAB OLIC PANEL , PLASM A glucose 128 mg/dL 65-99 high Fasti ng refer ence inter brijesh For someo ne witho ut known diabe lori, a gluco se value >125 mg/dL indic ates that they may have diabe lori and this shoul d be confi rmed with a follo w-up test. Not Available [address], [address], 11/21/2024 23:29:17 11/21/19 25 11/21/2024 COMPR EHENS SARAH METAB OLIC PANEL , PLASM A urea nitrogen (BUN) 14 mg/dL 7-25 normal Not Available [address], [address], 11/21/2024 23:29:17 11/21/19 25 11/21/2024 COMPR EHENS SARAH METAB OLIC PANEL , PLASM A creatinine 0.73 mg/dL 0.70-1 .35 normal Not Available [address], [address], 11/21/2024 23:29:17 11/21/19 25 11/21/2024 COMPR EHENS SARAH METAB OLIC PANEL , PLASM A eGFR 102 mL/mi n/1.7 3m2 > or = 60 normal Not Available [address], [address], 11/21/2024 23:29:17 11/21/19 25 11/21/2024 COMPR EHENS SARAH METAB OLIC PANEL , PLASM A BUN/creatini ne ratio SEE NOTE: (calc ) 6-22 Not Repor suki: BUN and Creat inine are withi n refer ence range . Not Available [facility] [address], [address], 11/21/2024 23:29:17 11/21/19 25 11/21/2024 COMPR EHENS SARAH METAB OLIC PANEL , PLASM A sodium 138 mmol/ L 135-14 6 normal Not Available [facility] [address], [address], 11/21/2024 23:29:17 11/21/19 25 11/21/2024 COMPR EHENS SARAH METAB OLIC PANEL , PLASM A potassium 4.3 mmol/ L 3.4-4. 8 normal Not Available [facility] [address], [address], 11/21/2024 23:29:17 11/21/19 25 11/21/2024 COMPR EHENS SARAH METAB OLIC PANEL , PLASM A chloride 104 mmol/ L 98-110 normal Not Available [facility] [address], [address], 11/21/2024 23:29:17 11/21/19 25 11/21/2024 COMPR EHENS SARAH METAB OLIC PANEL , PLASM A carbon dioxide 26 mmol/ L 20-32 normal Not Available [facility] [address], [address], 11/21/2024 23:29:17 11/21/19 25 11/21/2024 COMPR EHENS SARAH METAB OLIC PANEL , PLASM A calcium 9.2 mg/dL 8.6-10 .3 normal Not Available [facility] [address], [address], 11/21/2024 23:29:17 11/21/19 25 11/21/2024 COMPR EHENS SARAH METAB OLIC PANEL , PLASM A protein, total 6.9 g/dL 6.4-8. 4 normal Not Available [facility] [place] [address], [place], [address], 11/21/2024 23:29:17 11/21/19 25 11/21/2024 COMPR EHENS SARAH METAB OLIC PANEL , PLASM A albumin 4.5 g/dL 3.6-5. 1 normal Not Available [address], [address], 11/21/2024 23:29:17 11/21/19 25 11/21/2024 COMPR EHENS SARAH METAB OLIC PANEL , PLASM A globulin 2.4 g/dL_ (calc ) 2.2-4. 0 normal Not Available [address], [address], 11/21/2024 23:29:17 11/21/19 25 11/21/2024 COMPR EHENS SARAH METAB OLIC PANEL , PLASM A albumin/glob ulin ratio 1.9 (calc ) 0.9-2. 3 normal Not Available [address], [address], 11/21/2024 23:29:17 11/21/19 25 11/21/2024 COMPR EHENS SARAH METAB OLIC PANEL , PLASM A bilirubin, total 0.6 mg/dL 0.2-1. 2 normal Not Available [address], [address], 11/21/2024 23:29:17 11/21/19 25 11/21/2024 COMPR EHENS SARAH METAB OLIC PANEL , PLASM A alkaline phosphatase 62 U/L 35-144 normal Not Available [facility] [employer] [address], [address], 11/21/2024 23:29:17 11/21/19 25 11/21/2024 COMPR EHENS SARAH METAB OLIC PANEL , PLASM A AST 23 U/L 10-35 normal Not Available [address] [place], [address], 11/21/2024 23:29:17 11/21/19 25 11/21/2024 COMPR EHENS SARAH METAB OLIC PANEL , PLASM A ALT 30 U/L 9-46 normal Not Available [address], [address], 11/21/2024 23:29:17 11/21/19 25 11/21/2024 CBC (INCL UDES DIFF/ PLT) white blood cell count 5.3 thous and/u L 3.8-10 .8 normal Not Available [address], [address], 11/21/2024 23:29:18 11/21/19 25 11/21/2024 CBC (INCL UDES DIFF/ PLT) red blood cell count 5.17 salomón on/uL 4.20-5 .80 normal Not Available [address], [address], 11/21/2024 23:29:18 11/21/19 25 11/21/2024 CBC (INCL UDES DIFF/ PLT) hemoglobin 15.9 g/dL 13.2-1 7.1 normal Not Available [address], [address], 11/21/2024 23:29:18 11/21/1911/21/2024 CBC (INCL UDES DIFF/ PLT) hematocrit 48.1 % 38.5-5 0.0 normal Not Available [address], [address], 11/21/2024 23:29:18 11/21/19 25 11/21/2024 CBC (INCL UDES DIFF/ PLT) MCV 93.0 fL 80.0-1 00.0 normal Not Available [address], [address], 11/21/2024 23:29:18 11/21/19 25 11/21/2024 CBC (INCL UDES DIFF/ PLT) MCH 30.8 pg 27.0-3 3.0 normal Not Available [address], [address], 11/21/2024 23:29:18 11/21/19 25 11/21/2024 CBC (INCL UDES DIFF/ PLT) MCHC 33.1 g/dL 32.0-3 6.0 normal For adult s, a sligh t decre ase in the calcu lated MCHC value (in the range of 30 to 32 g/dL) is most likel y not clini rubin signi raquel t; gregorio er, it shoul d be inter prete d with [facility] with other red cell samm eters and the patie nt's clini [place] condi tion. Not Available [address], [address], 11/21/2024 23:29:18 11/21/1911/21/2024 CBC (INCL UDES DIFF/ PLT) RDW 12.9 % 11.0-1 5.0 normal Not Available [address], [address], 11/21/2024 23:29:18 11/21/1911/21/2024 CBC (INCL UDES DIFF/ PLT) platelet count 138 thous and/u L 140-40 0 low Not Available [address], [address], 11/21/2024 23:29:18 11/21/19 25 11/21/2024 CBC (INCL UDES DIFF/ PLT) MPV 10.7 fL 7.5-12 .5 normal Not Available [address], [address], 11/21/2024 23:29:18 11/21/19 25 11/21/2024 CBC (INCL UDES DIFF/ PLT) absolute neutrophils 3567 cells /uL 1500-7 800 normal Not Available [address], [address], 11/21/2024 23:29:18 11/21/19 25 11/21/2024 CBC (INCL UDES DIFF/ PLT) absolute lymphocytes 1102 cells /uL 850-39 00 normal Not Available [address], [address], 11/21/2024 23:29:18 11/21/19 25 11/21/2024 CBC (INCL UDES DIFF/ PLT) absolute monocytes 440 cells /uL 200-95 0 normal Not Available [address], [address], 11/21/2024 23:29:18 11/21/19 25 11/21/2024 CBC (INCL UDES DIFF/ PLT) absolute eosinophils 143 cells /uL 15-500 normal Not Available [address], [address], 11/21/2024 23:29:18 11/21/19 25 11/21/2024 CBC (INCL UDES DIFF/ PLT) absolute basophils 48 cells /uL 0-200 normal Not Available [address], [address], 11/21/2024 23:29:18 11/21/19 25 11/21/2024 CBC (INCL UDES DIFF/ PLT) neutrophils 67.3 % normal Not Available [address], [address], 11/21/2024 23:29:18 11/21/19 25 11/21/2024 CBC (INCL UDES DIFF/ PLT) lymphocytes 20.8 % normal Not Available [address], [address], 11/21/2024 23:29:18 11/21/19 11/21/2024 CBC (INCL UDES DIFF/ PLT) monocytes 8.3 % normal Not Available [facility] [address] [place] [address] [place], [address], 11/21/2024 23:29:18 11/21/1911/21/2024 CBC (INCL UDES DIFF/ PLT) eosinophils 2.7 % normal Not Available [facility] [address] [address] [place], [address], 11/21/2024 23:29:18 11/21/1911/21/2024 CBC (INCL UDES DIFF/ PLT) basophils 0.9 % normal Not Available [facility] [address] [address] [place], [address], 11/21/2024 23:29:18 11/21/1911/21/2024 JUDE SCREE N, IFA, W/REF L TITER AND PATTE RN JUDE screen, ifa NEGATI VE negati ve normal JUDE IFA is a first line scree n for detec ting the prese nce of up to appro ximat theresa 150 autoa ntibo dies in vario us autoi mmune disea ses. A negat sarah JUDE IFA resul t sugge sts an JUDE-a ssoci ated autoi mmune disea se is not prese nt at this time, but is not defin itive . If there is high clini [place] suspi cion for Sjogr en's syndr ome, testi ng for anti- SS-A/ Ro antib sourav shoul d be consi dered . Anti- Lorraine-1 antib sourav shoul d be consi dered for clini rubin suspe cted infla mmato ry myopa kar . AC-0: Negat sarah Inter natio nal Conse nsus on JUDE Patte rns (http s://d oi.or g/10. 1515/ [facility]- 0052) For addit ional infor jose rafael jerome e refer to http: //dalila hines.Que stDia gnost ics.c om/fa q/FAQ 177 (This link is being provi ded for infor matio nal/ educa omar l purpo ses only. ) Not Available [address], [address], 11/21/2024 23:29:19 11/21/19 25 11/21/2024 DNA (DS) ANTIB SOURAV DNA (ds) antibody <1 IU/mL normal IU/mL Inter preta tion < or = 4 Negat sarah 5-9 Indet ermin ate > or = 10 Posit sarah Not Available [address], [address], 11/21/2024 23:29:20 11/21/19 25 11/21/2024 RHEUM ATOID FACTO R rheumatoid factor <10 IU/mL <14 normal Not Available [address], [address], 11/21/2024 23:29:21 11/21/19 25 11/21/2024 C-RUBI CTIVE PROTE IN C-reactive protein 4.0 mg/L <8.0 normal Not Available [address], [address], 11/21/2024 23:29:22 11/21/19 25 11/21/2024 SCL-7 0 ANTIB SOURAV scl-70 antibody <1.0 NEG ai <1.0 neg normal Not Available [address], [address], 11/21/2024 23:29:23 11/21/19 25 11/21/2024 SJOGR EN'S ANTIB ODIES (SS-A ,SS-B ) sjogren's antibody (ss-A) <1.0 NEG ai <1.0 neg normal Not Available [address], [address], 11/21/2024 23:29:23 11/21/19 25 11/21/2024 SJOGR EN'S ANTIB ODIES (SS-A ,SS-B ) sjogren's antibody (ss-B) <1.0 NEG ai <1.0 neg normal Not Available [address], [address], 11/21/2024 23:29:23 11/21/19 25 11/21/2024 CYCLI C CITRU LLINA SUKI PEPTI DE (CCP) AB (IGG) cyclic citrullinate d peptide (ccp) Ab (IgG) <16 units normal Refer ence Range Negat sarah: <20 Weak Posit sarah: 20-39 Moder ate Posit sarah: 40-59 Stron g Posit sarah: >59 Not Available [address], [address], 11/21/2024 23:29:24 11/21/19 25 11/21/2024 SM ANTIB SOURAV sm antibody <1.0 NEG ai <1.0 neg normal Not Available [address], [address], 11/21/2024 23:29:24 11/21/19 25 11/21/2024 T4, FREE T4, free 0.9 NG/dL 0.8-1. 8 normal Not Available [address], [address], 11/21/2024 23:29:25 11/21/19 25 11/21/2024 TSH TSH 0.57 mIU/L 0.40-4 .50 normal Not Available [address], [address], 11/21/2024 23:29:25 11/21/1911/21/2024 HEMOG LOBIN A1C hemoglobin A1C 5.9 %_of_ total _HGB <5.7 high For someo ne witho ut known diabe lori, a hemog lobin A1c value betwe en 5.7% and 6.4% is consi stent with predi abete s and shoul d be confi rmed with a follo w-up test. For someo ne with known diabe lori, a value <7% indic ates that their diabe lori is well contr olled . A1c targe ts mumtaz d be indiv idual ized based on durat ion of diabe lori, age, comor bid condi tions , and other consi derat ions. This assay resul t is consi stent with an incre ased risk of diabe lori. Curre ntly, no conse nsus exist s heriberto balderas use of hemog lobin A1c for diagn osis of diabe lori for child terence. Not Available [facility] [address] [address] [address], [place], [address], 11/21/2024 23:29:26 11/21/19 25 11/21/2024 DRUG MONIT OR, BASE PANEL , SCREE N, URINE benzodiazepi kashif NEGATI VE NG/mL <100 See Note A See Note A Not Available [facility] [address] [address] [address], [place], [address], 11/21/2024 23:29:27 11/21/19 25 11/21/2024 DRUG MONIT OR, BASE PANEL , SCREE N, URINE cocaine metabolite NEGATI VE NG/mL <150 See Note A See Note A Not Available [facility] [address] [address] [address], [place], [address], 11/21/2024 23:29:27 11/21/19 25 11/21/2024 DRUG MONIT OR, BASE PANEL , SCREE N, URINE opiates POSITI VE NG/mL <100 abnormal See Note A See Note A Not Available [facility] [address] [address], [place], [address], 11/21/2024 23:29:27 11/21/19 25 11/21/2024 DRUG MONIT OR, BASE PANEL , SCREE N, URINE oxycodone NEGATI VE NG/mL <100 See Note A See Note A Not Available [facility] [address] [address] [place], [address], 11/21/2024 23:29:27 11/21/19 25 11/21/2024 DRUG MONIT OR, BASE PANEL , SCREE N, URINE creatinine 67.8 mg/dL > or = 20.0 Not Available [facility] [address] [address] [address], [place], [address], 11/21/2024 23:29:27 11/21/19 25 11/21/2024 DRUG MONIT OR, BASE PANEL , SCREE N, URINE pH 5.3 4.5-9. 0 Not Available [facility] [address], [place], [address], 11/21/2024 23:29:27 11/21/1911/21/2024 DRUG MONIT OR, BASE PANEL , SCREE N, URINE oxidant NEGATI VE mcg/m L <200 Not Available [facility] [address] [address] [place], [address], 11/21/2024 23:29:27 11/21/1911/21/2024 DRUG MONIT ORING TEMPL ATE notes and comments This drug testi ng is for medic al treat ment only. Yue sis was perfo rmed as non-f orens ic testi ng and these resul ts shoul d be used only by [facility]alt [facility] provi ders to rende r diagn osis or treat ment, or to monit or progr ess of medic al condi tions . Note A: The resul ts are presu mptiv e; based only on scree josy metho ds, and they have not been confi rmed by a defin itive metho d. [facility] Provi ders needi ng Inter preta tion le tance , pleas e conta ct us at 1.877 .40.R XTOX (1.87 [phone] .[phone] ) M-F, 8am to 10pm EST Not Available [facility] [address] [address] , [place], [address], 11/21/2024 23:29:28 04/05/20 24 04/05/2024 CT, abdom en, w/o contr ast No observ ation record ed. [email or web address] [facility] [address], [place], [address], 04/05/2024 16:15:01 04/07/2004/05/2024 CT, abdom en, w/o contr ast No observ ation record ed. [email or web address] [facility] [address], [place], [address], 04/08/2024 14:38:39 Result Notes None recorded. Problems Name Problem SNOMED Code Status Onset Date Resolution Date Notes Provider Name and Address Organization Details Recorded Time Tobacco user 041225238 Active Not Available [facility] 3 18:24:08 Testicular hypofuncti on 927139329 Active Not Available [facility] 3 18:24:08 Blood glucose outside reference range 257854646 Active Not Available [facility] 3 18:24:08 Anxiety disorder 053322455 Active Not Available [facility] 3 18:24:08 Lumbar sprain 999013281 Active Not Available [facility] 3 18:24:08 Pure hyperchole sterolemia 803285624 Active Not Available [facility] 3 18:24:08 Rosacea 480469723 Active Not Available [facility] 3 18:24:08 Cervical radiculopa thy 24594432 Active Not Available [facility] 3 18:24:08 Chronic bronchitis 53698253 Active Not Available [facility] 3 18:24:08 Increased liver function 26723771 Active Not Available [facility] 3 18:24:08 Obstructiv e sleep apnea syndrome 80205542 Active 2016 Not Available [facility] 3 18:24:08 Chronic pain syndrome 102109303 Active 2017 Not Available [facility] 3 18:24:08 Paronychia of toe 332278844 Active 2017 Not Available [facility] 3 18:24:08 Sleep apnea 22669038 Active 2017 Not Available [facility] 3 18:24:08 Type 2 diabetes mellitus 58972234 Active 2020 Not Available [facility] 3 18:24:08 Chronic back pain 519979216 Active 2021 Not Available [facility] 3 18:24:08 COVID-19 115443560 Active 2021 Not Available [facility] 3 18:24:08 Hyperlipid emia 46613792 Active 2022 Not Available [facility] 3 18:24:08 Pain of right hand 0589630841311 09 Active 2022 Edna hernandez, [place] [facility] 3 17:25:44 Disorder of prostate 75212018 Active 2022 Vik Arrieta MD [address], [place], [address] , [place] [facility] 3 17:23:27 Abnormal platelet production 725910787 Active 2023 TOBI Han[place] [facility] 4 17:21:46 Pain of left hand 4190813814989 03 Active 2023 Edna hernandez, [place] [facility] 4 12:33:27 Acute sinusitis 13850198 Active 2023 Vik Arrieta MD [address], [place], [address] , [facility] 4 14:47:18 Contact dermatitis caused by urushiol from [facility] araceil 158911802 Active 2023 Vik Arrieta MD [address], [place], [address] , [facility] - [facility] 4 11:06:30 Atypical chest pain 203439566 Active 2023 Vik Arrieta MD [address], [place], [address] , [facility] - [facility] 4 15:10:45 Obese class I 7194327609476 07 Active 2023 Vik Arrieta MD [address], [place], [address] , [place] [facility] 4 15:12:19 Right flank pain 588510490 Active 2023 Brenna Wintersson null, [place] - [facility] 4 15:38:07 Epigastric pain 13332217 Active 2023 Brenna Wintersson null, [place] [facility] 4 15:38:33 Abdominal pain 50276242 Active 2023 Monique Teran CMA null, [place] [facility] 4 15:22:28 Type 2 diabetes mellitus without complicati on 554089555 Active 2023 Monique Teran CMA null, [place] [facility] 4 15:06:33 Cellulitis 565986219 Active 2023 Vik Arrieta MD [address], [place], [address] , [facility] - [facility] 4 16:16:07 Uncontroll ed type 2 diabetes mellitus 928165642 Active 2023 Monique Teran CMA null, [place] [facility] 4 11:29:49 Diabetes mellitus 49124652 Active 2023 Monique Teran CMA null, [place] [facility] 5 15:32:31 Influenza 2203528 Active 2024 Vik Arrieta MD [address], [place], [address] , [place] [facility] 5 16:35:46 Pain of multiple joints 13245478 Active 2024 Vik Arrieta MD [address], [place], [address] , [place] [facility] 5 11:46:22 Pharyngiti s 931063258 Active 2024 Vik Arrieta MD [address], [place], [address] , [facility] [employer] [facility] [employer] [facility] 5 11:45:33 Lesion of tongue 905040115 Active 2024 Vik Arrieta MD [address], [place], [address] , [facility] [employer] [facility] 5 17:08:11 Notes:back/neck pain Problem Notes None recorded. Medical Equipment None Reported. Allergies No known drug allergies Medications Name Sig Start Date Stop Date Status Note LastModified by Organization Details LastModified Time cyclobenzap rine 10 mg tablet TAKE 1 TABLET 3 TIMES DAILY NEEDED FOR MUSCLE PAIN active Not Available Not Available No t Available amoxicillin 500 mg capsule TAKE 1 CAPSULE BY MOUTH THREE TIMES A DAY FOR 10 DAYS 02/21 completed Not Available Not Available Not Available metformin 500 mg tablet Take 1 tablet twice a day by oral route. 03/14 completed Not Available Not Available Not Available atorvastati n 20 mg tablet TAKE 1 TABLET BY MOUTH EVERY DAY active Not Available Not Available No t Available azithromyci n 250 mg tablet TAKE 2 TABLETS BY MOUTH TODAY, THEN TAKE 1 TABLET DAILY FOR 4 DAYS DIRECTED 10/31 completed Not Available Not Available Not Available pravastatin 40 mg tablet TAKE 1 TABLET BY MOUTH DAILY 02/14 completed Not Available Not Available Not Available benzonatate 200 mg capsule TAKE 1 CAPSULE BY MOUTH THREE TIMES A DAY 10/31 completed Not Available Not Available Not Available hydrocodone 5 mg-acetamin ophen 325 mg tablet TAKE 1 TABLET EVERY 6 HOURS NEEDED FOR PAIN. active Not Available Not Available No t Available promethazin e 6.25 mg-codeine 10 mg/5 mL syrup Take 5 ML EVERY 6 HOURS by oral route PRN for cough 10/08 completed Not Available Not Available Not Available triamcinolo ne acetonide 0.5 % topical ointment APPLY TOPICALLY TO RASH TWICE DAILY FOR 7 DAYS. 11/10 completed Not Available Not Available Not Available glimepiride 2 mg tablet Take 1 tablet every day by oral route for 30 days. 01/19 completed Not Available Not Available Not Available Tessalon Perles 100 mg capsule Take 1 capsule 3 times a day by oral route. 09/19 completed Not Available Not Available Not Available Xanax 0.25 mg tablet Take 1 tablet 3 times a day by oral route. active Not Available Not Available No t Available hydrocodone 7.5 mg-acetamin ophen 325 mg tablet TAKE 1 TABLET BY MOUTH EVERY 6 HOURS active Not Available Not Available No t Available cephalexin 500 mg capsule TAKE 1 CAPSULE BY MOUTH TWICE A DAY FOR 10 DAYS 11/04 completed Not Available Not Available Not Available oseltamivir 75 mg capsule TAKE 1 CAPSULE BY MOUTH TWICE A DAY FOR 5 DAYS 03/14 completed Not Available Not Available Not Available cephalexin 250 mg/5 mL oral suspension TAKE 5 MILLILITE RS BY MOUTH EVERY 6 HOURS 05/02 completed Not Available Not Available Not Available methylpredn isolone 4 mg tablets in a dose pack TAKE 6 TABLETS ON DAY 1 DIRECTED ON PACKAGE AND DECREASE BY 1 TAB EACH DAY FOR A TOTAL OF 6 DAYS 03/13 completed Not Available Not Available Not Available hydroxyzine HCl 10 mg tablet Take by oral route four times daily PRN for itching 09/19 completed Not Available Not Available Not Available amoxicillin 875 mg-potassiu m clavulanate 125 mg tablet TAKE 1 TABLET BY MOUTH EVERY 12 HOURS 11/10 completed Not Available Not Available Not Available tobramycin 0.3 %-dexametha sone 0.1 % eye drops,suspe nsion INSTILL 1 DROP INTO BOTH EYES TWICE A DAY FOR 10 DAYS 11/10 completed Not Available Not Available Not Available Adult Low Dose Aspirin 81 mg tablet,gloria yed release Take 1 tablet every day by oral route. 10/08 completed Not Available Not Available Not Available Blood Glucose Test strips use to test blood sugar daily 03/14 completed Not Available Not Available Not Available Mucinex 600 mg tablet, extended release Take 1 tablet every 12 hours by oral route. 04/26 completed Not Available Not Available Not Available Multivitami n 50 Plus tablet Take 1 tablet every day by oral route. 2019 active Not Available Not Available Not Avai lable Cinnamon 500 mg capsule daily 2019 active Not Available Not Available Not Avai lable Paxlovid 300 mg (150 mg x 2)-100 mg tablets in a dose pack Take two of he 150 mg tablets and one of the 100 mg tablets twice daily for five days 11/04 completed Not Available Not Available Not Available Vitals Date Recorded Body height Body mass index (BMI) Body weight Heart rate Body temperature Oxygen saturation Oxygen saturation in Arterial blood by Pulse oximetry Systolic And Diastolic Provider Name and Address Organization Details Last Updated DateTime 5 180.34 cm 33.7 kg/m2 553351. 56 g 69 /min 97 [degF] 97 % 97 % 128/80 mm[Hg] Ednapollo Paezjulia MS [employer] [facility] 11:26:26 Date Recorded Body height Body mass index (BMI) Body weight Heart rate Body temperature Oxygen saturation Oxygen saturation in Arterial blood by Pulse oximetry Systolic And Diastolic Provider Name and Address Organization Details Last Updated DateTime 5 180.34 cm 31.1 kg/m2 115861. 1 g 61 /min 97.2 [degF] 95 % 95 % 120/78 mm[Hg] Edna Nash MS [employer] [facility] 5 17:02:36 Date Recorded Body height Body mass index (BMI) Body weight Body temperature Provider Name and Address Organization Details Last Updated DateTime 03/14/2025 180.34 cm 30.7 kg/m2 04198.32 g 97.5 [degF] Kari Florence [facility] 03/14/2025 16:11:56 Date Recorded Body height Body mass index (BMI) Body weight Heart rate Body temperature Oxygen saturation Oxygen saturation in Arterial blood by Pulse oximetry Systolic And Diastolic Provider Name and Address Organization Details Last Updated DateTime 4 180.34 cm 33.1 kg/m2 456795. 39 g 91 /min 97 [degF] 96 % 96 % 122/64 mm[Hg] Edna Nash MS [employer] [facility] 14:49:38 Date Recorded Body height Body weight Heart rate Body temperature Oxygen saturation Oxygen saturation in Arterial blood by Pulse oximetry Systolic And Diastolic Provider Name and Address Organization Details Last Updated DateTime 4 180.34 cm 311207. 88 g 65 /min 97 [degF] 96 % 96 % 118/72 mm[Hg] SHAN Alfredo [facility] 16:08:32 Social History Question Answer Notes LastModified by Organizat [employer] Details LastModified Time Tobacco Smoking Status Never Smoker Kari Florence mary, [facility] 03/14/2025 16:12:53 What Was The Date Of Your Most Recent Tobacco Screening? 03/14/2025 [email or web address] Information not available 03/14/2025 Sex: Unknown Functional Status Question Answer Note LastModified by Organizat [employer] Details LastModified Time What is your level of alcohol consumption? Occasional [email or web address] Information not available 03/14/2025 Mental Status None recorded. Family History Nothing Reported Notes:Mother 65 from [place] of cervix Father at 63 from ASHD and CVA Two brothers one ASHD and CHF the other in good health One sister of CRF NO ENT Medical History Condition Response NERVE DISEASE N BLINDNESS N RHEUMATIC FEVER N KIDNEY STONES N BLADDER PROBLEMS N MRSA N OTHER # 1 N POLIO N LUNG DISEASE/DISORDER N HISTORY OF DRUG ABUSE N RADIATION / CHEMOTHERAPY N COPD N Other # 2 N BLOOD DISEASES N EAR OR HEARING PROBLEMS N MUMPS N SHINGLES N BOWEL PROBLEMS N DEPRESSION (INCLUDING POST ) N STROKE/TIA N ULCERS N BENIGN PROSTATIC HYPERPLASIA N MEASLES N HYPOTENSION N MYOCARDIAL INFARCTION N OBESITY N GERD/NAUSEA N ANEURYSM N URINARY/BLADDER/KIDNEY PROBLEMS N CORONARY ARTERY DISEASE (CAD) N ADDICTION CONCERNS N ENDOMETRIOSIS N Impotence N USE OF BLOOD THINNERS N SKIN PROBLEMS N GASTROINTESTINAL DISORDER N PERIPHERAL VASCULAR DISEASE N MUSCLE,JOINT OR BONE PROBLEMS N GASTROINTESTINAL BLEEDING N BLOOD CLOTS N ASTHMA N CATARACTS N ERECTILE DYSFUNCTION N VARICOSITIES N GI PROBLEMS N Low Testosterone N INFERTILITY N AIDS/HIV N CHEMOTHERAPY / RADIATION N LIVER DISEASE N MALE HYPOGONADISM N HYPERTENSION N Deficiency N TOURETTE'S N ANXIETY DISORDER Y BLOOD TRANSFUSION N ANEMIA/BLOOD DISORDER N CHRONIC EAR INFECTIONS N BRONCHITIS N TUBERCULOSIS N GLAUCOMA N FOOT PROBLEM N DIVERTICULITIS N CHICKENPOX N SLEEP APNEA N INFECTIOUS DISEASE N HEART ARRHYTHMIA N PROSTATE N INSOMNIA N HIGH CHOLESTEROL / HYPERLIPIDEMIA Y HYPERTHYROIDISM N EYE PROBLEMS N EDEMA N CHRONIC PAIN SYNDROME N HYPOTHYROIDISM N CAROTID BLOCKAGE N CONSTIPATION N BACK / NECK PROBLEMS Y HAVE YOU BEEN HOSPITALIZED OR SEEN IN [facility] IN THE PAST YEAR ? N ATHEROSCLEROSIS N BREAST PROBLEMS N DIALYSIS N ECZEMA N OSTEOPOROSIS N ARTHRITIS N NO SIGNIFICANT PAST MEDICAL HISTORY N APPENDICITIS N DIABETES, TYPE N BAD TEETH N ENT N HEARTBURN / REFLUX N AUTISM SPECTRUM DISORDER (ASD) N HEPATITIS / LIVER DISEASE N GOUT N SLEEP DISORDER N ALZHEIMER'S DISEASE N Brain Problems N HERPES N DEMENTIA N HEADACHES/MIGRAINES N SEIZURES/EPILEPSY N VASCULAR DISEASE N PACEMAKER N Blood Disorder N DIZZINESS N HEART DISEASE/HEART PROBLEMS N KIDNEY DISEASE N MULTIPLE SCLEROSIS N CARDIAC ARRHYTHMIA N CANCER: SPECIFY N ATRIAL FIBRILLATION N Gall Stones N PULMONARY EMBOLISM N AUTOIMMUNE DISEASE N Immunizations Vaccine Type Date Status Note Provider Nam e and Address Organization Details Recorded Time influenza, unspecified formulation 3 completed Monique Teran CMA [employer], [facility] 04/07/2023 15:38:47 SARS-COV-2 (COVID-19) vaccine, UNSPECIFIED 3 completed Edna Nash [employer], [facility] 06/01/2023 16:56:41 COVID-19, mRNA, LNP-S, PF, 50 mcg/0.5 mL 4 completed SHAN Alfredo null, [facility] [employer] [facility] 04/13/2024 14:20:54 COVID-19, mRNA, LNP-S, PF, 100 mcg/0.5mL dose or 50 mcg/0.25mL dose 1 completed Not Available [facility] 02/21/2025 16:42:33 COVID-19, mRNA, LNP-S, PF, 100 mcg/0.5mL dose or 50 mcg/0.25mL dose 1 completed Not Available [facility] 02/21/2025 16:42:33 zoster recombinant 1 completed Not Available [facility] 02/21/2025 16:42:33 COVID-19, mRNA, LNP-S, PF, 100 mcg/0.5mL dose or 50 mcg/0.25mL dose 2 completed Not Available [facility] 02/21/2025 16:42:33 zoster recombinant 2 completed Not Available [facility] 02/21/2025 16:42:33 Influenza, split virus, trivalent, PF 4 completed Vik Arrieta MD [address] [place] [address], [facility] [address], [place], [address], [facility] 03/21/2024 14:54:37 SARS-COV-2 (COVID-19) vaccine, UNSPECIFIED 1 completed Not Available [facility] 08/12/2022 15:29:30 SARS-COV-2 (COVID-19) vaccine, UNSPECIFIED 1 completed Not Available [facility] 08/12/2022 15:29:31 Influenza, split virus, quadrivalent, preservative 9 completed Not Available [facility] 08/12/2022 15:29:31 Tdap 8 completed Not Available [facility] 08/12/2022 15:29:31 Influenza, split virus, quadrivalent, PF 2 completed Not Available [facility] 08/12/2022 15:29:31 Influenza, split virus, quadrivalent, PF 1 completed Not Available [facility] 08/12/2022 15:29:31 Influenza, split virus, quadrivalent, preservative 8 completed Not Available [facility] 08/12/2022 15:29:31 Past Encounters Encounter ID Performer Location Encounter Start Date Encounter Closed Date Diagnosis/Indication Diagnosis SNOMED-CT Code Diagnosis ICD10 Code Diagnosis IMO Codes Diagnosis Note [id number] Vik Arrieta MD [facility] [facility] [address] [address] 10/07/2020 00:00:00 10/07/2020 16:42:44 [id number] Vik Arrieta MD [facility] [address] [address] 04/07/2021 00:00:00 04/07/2021 16:59:16 [id number] Vik Arrieta MD [facility] Denae orozco [address] [facility] , [facility] [place] [address] 11/21/2021 00:00:00 11/21/2021 16:44:37 [id number] Vik Arrieta MD [facility] Internal [facility] [address] [address] 04/13/2022 00:00:00 04/13/2022 17:16:45 [id number] Vik Arrieta MD [facility] Internal Med [facility] [address], [place] [address] 11/04/2022 16:51:15 11/04/2022 17:32:02 Chronic pain syndrome 959139687 G89.4 Pure hypercholesterolemia 932913454 E78.00 Obstructiv e sleep apnea syndrome 51181793 G47.33 Long-term current use of opiate analgesic drug 5216891818 14786 Z79.842 [id number] Vik Arrieta MD [facility] Internal Med [place] [address] [place] [address] [place] [address] 06/01/2023 16:15:19 06/01/2023 17:29:13 Chronic pain syndrome 890085823 G89.4 Hyperlipidemia 13829360 E78.5 Type 2 sarabjit betes mellitus 74259599 E11.37X9 Obstructiv e sleep apnea syndrome 07343535 G47.33 Disorder of prostate 302 44188 N42.9 [id number] Vik Arrieta MD [facility] Internal [facility] [place] [address] [place] [address] [place] [address] 11/11/2023 11:37:36 11/11/2023 12:25:56 Chronic pain syndrome 908413259 G89.4 Hyperlipidemia 19583188 E78.5 Obstructiv e sleep apnea syndrome 50947610 G47.33 [id number] Vik Arrieta MD [facility] Internal Med [place] [address] [place] [address] [place] [address] 12/09/2023 15:00:39 12/09/2023 15:34:41 Atypical chest pain 661181262 R07.89 Chronic pain syndrome 37 4014560 G89.4 Hyperlipidemia 71476028 E78.5 Type 2 sarabjit betes mellitus 33981523 E11.37X9 Obese class I 2411419875 96763 E66.9 [id number] Vik Arrieta MD [facility] [place] [address] [place] [address] [place] [address] 03/21/2024 14:40:17 03/21/2024 15:07:12 Administration of influenza vaccine 16674015 Z23 Epigastric pain 26585536 R10.13 Pure hypercholesterolemia 512904044 E78.00 Type 2 sarabjit betes mellitus 29091356 E11.37X9 Obese class I 2981125479 45749 E66.9 [id number] Vik Arrieta MD [facility] [place] Gerald orozco [address] [facility] [address] [facility] [place] [address] 05/02/2024 15:57:11 05/02/2024 16:43:16 Pure hypercholesterolemia 977012893 E78.00 Type 2 sarabjit betes mellitus without complication 743269825 E11.9 Obstructiv e sleep apnea syndrome 85896541 G47.33 Chronic pain syndrome 37 8745020 G89.4 [id number] Vik Arrieta MD [facility] Internal Med [facility] [address] [address] 10/31/2024 11:01:43 10/31/2024 11:50:38 General examination of patient 004040479 Z00.00 [id number] Pure hypercholesterolemia 141805114 E78.00 Type 2 sarabjit betes mellitus 64248411 E11.37X9 Sleep apnea 63857550 G47 .30 Pain of mu ltiple joints 46072307 M25.50 Long-term current use of opiate analgesic drug 5353910091 72707 Z79.710 [id number] Vik Arrieta MD [facility] Internal Med [facility] [address] [address] 02/21/2025 16:41:59 02/21/2025 17:19:41 Lesion of tongue 820049331 K14.8 768092 [id number] Ernst Hernandez MD [facility] [place] [address] [place] [address] 03/14/2025 15:32:36 03/15/2025 12:09:18 Lesion of tongue 067541329 K14.8 760390 Health Concerns Section Related Observation LastModified by Organization Detai ls LastModified Time None Recorded Concern Status LastModified by Organization Details LastModified Time None Recorded Advance Directives Directive None Recorded Payers Insurance Date Sequence Insurance Name Policy Number Policy Silva Covered Member ID Silva Member ID Guarantor Name 03/28/2025 1 [employer] [facility] [employer] [facility] [address] [employer]D (POS) [id number] Darryl Guerrier [id number] Darryl Guerrier Notes Date Note Type Note Provider Name and Address Organization Details Recorded Time 03/21/20 24 text/htm l Patient Name: Darryl GuerrierDate Of Service: Wednesday ( 03.21.2024 ): 1960 Age: 63 There has been approximately a 3 lb weight gain since 12/09/2023. This represents approximately a 1.3% change in weight. Weight change attributable to lifestyle changes. Vital Signs:Blood Pressure: Sitting Rt. Arm 122/64Pulse: Sitting 91 /min and RegularRespiratory Rate: 16Height 71 in or 1.8 mWeight 237 lb or 107.5 kgBMI 33.1Temperature: 97 F or 36.1 CDCCT HAIC: 9.8 Calculated MB mg%Pulse Oximetry: 96 % at rest on no oxygen Chief Complaint: Addressed in HPI Problems or conditions discussed in the HPI were the only ones reviewed during the encounter.Only social and family history addressed in the HPI were reviewed during this encounter. Attendant(s): NoneConstitutional and Systemic Symptoms:none Medication Reconciliation: from medication list. Mpddejzltgu47/06/2023: Low-dose CT scan of the chest negative for any malignancy. Repeat in approximately one year. 12-18-2023: Ultrasound of the abdomen revealed hepatic steatosis no other significant anomalies History of Present Illness #1. Persistent episodic abdominal pain location predominantly in the epigastric area. . Duration normally last anywhere from 30-60 minutes. No radiation through to the back. Not precipitated by any specific food or any other actions the patient performs. Does feel at times like food does get lodged at the distal portion of the esophagus. But is not bothered by any type of recurrent epigastric burning sensation. Has been trying some omeprazole tbfa-cvu-lasoatg with little in the way of any clinical improvement. Has become somewhat more frequent occurring at least once or twice per week. Had an ultrasound of the gallbladder which showed a fatty liver but no other significant abnormalities.: #2. Type II Hypercholesterolaemia: Currently taking medication and tolerating well. No interval complaints of any muscle pain or arthralgia. No significant liver changes with medications. Last lipid panel: fair control. Therapy reviewed regarding treatment of cholesterol management and include diet and Atorvastatin Calcium. #3. Type II Diabetes: Has had no polyuria polyphagia or polydipsia. Has had no hypoglycemic like responses. No new history of any numbness, tingling, weakness or visual problems. No nausea, anorexia or other constitutional symptoms. There has been no foot problems or non healing lesions. The last HAIC was unknown. CGM: No. Average blood sugars unknown. Checking sugars : infrequently. Medication Types Include: diet Secondary complications include none. Macro-vascular complications include none. Therapy reviewed regarding diabetic management and include diet only Compliance: good Renal Protection: not required at this stage Lipid management: statins Urinary microalbumin: A1 . Ophthalmological: has seen eye doctor within the last year. Control: Inadequate control > 8 #4. Hx of obesity. Currently Class 1 Obesity BMI 30-34.99. Has tried numerous dietary support and supplements with no benefit. Instructed on the health consequences of the obese status particularly cancer - diabetes and heart disease. Discussed other modalities of weight loss no . Potential candidate for bariatric surgery: No. Wishes to be evaluated by Dietary: No and was offered to be evaluated and instructed by time study observer on weight loss diet. Active Medication ListNorco 325 MG-7.5 MG (TABLET - ORAL) One Three Times DailyAtorvastatin Calcium 20 MG (TABLET - ORAL) One DailyAspirin 81 MG TABLET One DailyMultivitamin DailyCpap As Directed Vaccination and Immunization( ) 2023- INFLUENZA( ) 2017- TDAP( ) 2020- COVID MODERNA( ) 2022- COVID BOOSTER MODERNA Surgical [id number] No previous surgery Preventative Testing( ) 02/03/2024 LDCT ( 1 Years ) 02/02/2025( ) 12/14/2023 Albumin 4.3 G/DL N( ) 12/14/2023 HAIC 9.8 % OF TOTAL HGB H( ) 06/02/2023 PSA 1.36 NG/ML N 06/02/2024( ) 06/02/2023 Micro Albumin 0.4 MG/DL N( ) 06/11/2017 Colonoscopy (10 Years) 06/11/2027 Social HistoryMarriedSmokes 1.5 packs daily for over 25 years quite 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 This represents approximately a 4.6% change in weight. Weight change attributable to lifestyle changes. Vital Signs:Blood Pressure: Sitting Rt. Arm 118/72Pulse: Sitting 65 /min and RegularRespiratory Rate: 16Height 71 in or 1.8 mWeight 226 lb or 102.5 kgBMI 31.5Temperature: 97 F or 36.1 CDCCT HAIC: 9.2 Calculated MB mg%Pulse Oximetry: 96 % at rest on no oxygen Chief Complaint: Addressed in HPI Problems or conditions discussed in the HPI were the only ones reviewed during the encounter.Only social and family history addressed in the HPI were reviewed during this encounter. Attendant(s): NoneConstitutional and Systemic Symptoms:none Medication Reconciliation: from medication list. Oxtncmnpjfb71/06/2023: Low-dose CT scan of the chest negative for any malignancy. Repeat in approximately one year. 12-18-2023: Ultrasound of the abdomen revealed hepatic steatosis no other significant anomalies 04-07-2024: CT of the abdomen reveals diffuse hepatic steatosis. History of Present Illness #1. Type II Hypercholesterolaemia: Currently taking medication and tolerating well. No interval complaints of any muscle pain or arthralgia. No significant liver changes with medications. Last lipid panel: fair control. Therapy reviewed regarding treatment of cholesterol management and include diet and Atorvastatin Calcium. #2. Type II Diabetes: Has had no polyuria polyphagia or polydipsia. Has had no hypoglycemic like responses. No new history of any numbness, tingling, weakness or visual problems. No nausea, anorexia or other constitutional symptoms. There has been no foot problems or non healing lesions. The last HAIC was DCCT HAIC: 9.2 Calculated MB mg%. CGM: No. Average blood sugars not taking blood sugars regularly and instructed on the importance of monitor these values. Checking sugars : several times a week. Medication Types Include: Sulfonylureas Secondary complications include none. Macro-vascular complications include none. Therapy reviewed regarding diabetic management and include Glimepiride Compliance: good Renal Protection: none Lipid management: statins Urinary microalbumin: has seen eye doctor within the last year . Ophthalmological: Inadequate control > 8. Control: EILEEN #3. Sleep Apnea: Type: Using CPAP on nightly basis Current doing well. No significant daytime somnolence or problems performing daily chores. considerable improvement . Overall has shown 1.[place] Sleepiness ScaleSitting and ReadinWatching TV: 1Sitting Inactive in a Public Place: 0Passenger in a Car: 1Lying Down in Afternoon: 1Sitting and Talking to someone: 0Sitting quietly after lunch: 0In a car while stopped or drivin-7 No evidence of abnormally sleepyScore Interpretation: lumbar #4. Chronic pain management for chronic no significant change since last examination Since last examination none Interval Testing: partial relief requiring additional medicationHas tried NSAIDS constant, exacerbated by activity and interferes with enjoyment and ability to perform activities of daily living. Pain Description: No. Currently seeing or has seen in the past a Carriage Rider: 5 .Pain - Enjoyment of Life - General Activity ScalePain on Average: 5Enjoyment of Live: 4General Activity: 5Enjoyment of Life - General Activity Scale: NorcoCurrently regimen consists of 22 as prescribed with no evidence of abuse or self prescribing. Current Average Morphine Milligram Approximate Equivalent: NA mg approximated if taking full dosage daily. Recommend: no.Benzodiazepines or other hypnotics: kept medications the same.Alternative pain management modalities (acupuncture - behavior therapy- additional PT - SNRIs) have been discussed and have either been tried in the past or not acceptable alternatives to patient or not available in our location.Will not indicated and this time.Urine Testing: yes and no discrepancies or multiple prescribers noted.Controlled substance database yes and no discrepancies or multiple prescribers noted. Pill counts when available have been acceptable. No other signs of any abuse.Patient reports condition is stable and is able to function with the medication. Denies any misuse or adverse effects.TREATMENT OBJECTIVE: Enhance ability to manage pain independently, improved function and sustain quality of life. Recommendations or alternative therapies and lifestyle changes are discussed on each visit. Has shown improvement inf functionality. Has been educated on the side effects,risks and any black box warnings. Has verbalized the dangers of some of the medications regarding driving and cooperating heavy machinery and have advised against this. Active Medication ListGlimepiride 2 MG TABLET One DailyNorco 325 MG-7.5 MG (TABLET - ORAL) One Three Times DailyAtorvastatin Calcium 20 MG (TABLET - ORAL) One DailyAspirin 81 MG TABLET One DailyMultivitamin DailyCpap As Directed Vaccination and Immunization( ) 2024-03 INFLUENZA( ) 2017-08 TDAP( ) 2020-07 COVID MODERNA( ) 2024-03 COVID BOOSTER MODERNA Surgical [id number] No previous surgery Preventative Testing( ) 04/12/2024 Albumin 4.4 G/DL N( ) 04/12/2024 HAIC 9.2 % OF TOTAL HGB H( ) 02/03/2024 LDCT ( 1 Years ) 02/02/2025( ) 06/02/2023 PSA 1.36 NG/ML N 06/02/2024( ) 06/02/2023 Micro Albumin 0.4 MG/DL N( ) 06/11/2017 Colonoscopy (10 Years) 06/11/2027 Social HistoryMarriedSmokes 1.5 packs daily for over 25 years quite 2009Drinks sociallyWorks as a laborer [place] Family HistoryMother 65 from CA of cervixFather at 63 from ASHD and CVATwo brothers one ASHD and CHF the other in good healthOne sister of CRF Active Medication ListGlimepiride 2 MG TABLET One DailyNorco 325 MG-7.5 MG (TABLET - ORAL) One Three Times DailyAtorvastatin Calcium 20 MG (TABLET - ORAL) One DailyAspirin 81 MG TABLET One DailyMultivitamin DailyCpap As Directed Vaccination and Immunization( ) 2024-03 INFLUENZA( ) 2017-08 TDAP( ) 2020-07 COVID MODERNA( ) 2024-03 COVID BOOSTER MODERNA Surgical [id number] No previous surgery Preventative Testing( ) 04/12/2024 Albumin 4.4 G/DL N( ) 04/12/2024 HAIC 9.2 % OF TOTAL HGB H( ) 02/03/2024 LDCT ( 1 Years ) 02/02/2025( ) 06/02/2023 PSA 1.36 NG/ML N 06/02/2024( ) 06/02/2023 Micro Albumin 0.4 MG/DL N( ) 06/11/2017 Colonoscopy (10 Years) 06/11/2027 Social HistoryMarriedSmokes 1.5 packs daily for over 25 years quite 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 sociallyWorks as a laborer brush clearing Family HistoryMother 65 from CA of cervixFather at 63 from ASHD and CVATwo brothers one ASHD and CHF the other in good healthOne sister of CRF Vik Arrieta MD [address] [facility] [facility] [address], [place], [address], [facility] [address] 05/02/2024 16:30:59 11/01/19 25 text/htm l Patient Name: Darryl Beltre Of Service: Wednesday ( 10.31.2024 ): 1960 Age: 64 DCCT HAIC: 9.2 Calculated MB mg% Chief Complaint: Addressed in HPI Problems or conditions discussed in the HPI were the only ones reviewed during the encounter.Only social and family history addressed in the HPI were reviewed during this encounter. Attendant(s): NoneConstitutional and Systemic Symptoms:none Medication Reconciliation: from medication list. Cjepzlysdyk20/06/2023: Low-dose CT scan of the chest negative for any malignancy. Repeat in approximately one year. 12-18-2023: Ultrasound of the abdomen revealed hepatic steatosis no other significant anomalies 04-07-2024: CT of the abdomen reveals diffuse hepatic steatosis. History of Present Illness In for a well patient check up. Last well patient evaluation was approximately one year. No interval complaints of any new major medical problems. No hx of any chest pain, shortness of breath, nausea, vomiting, diarrhea or constitutional symptoms.PSA orderedColonoscopy or Cologuard: not dueImmunizations Up To Date or refuses to takeNo Significant Change In Family HxFall Risk normalHearing normalVisual normalReviewed Smoking and Drug HistoryReviewed Immunization HistoryInstructed on importance of weight on diabetes, heart and other diseases aggravated by obesity.Instructed on importance of weight on diabetes, heart and other diseases aggravated by obesity. #1. Type II Hypercholesterolaemia: Currently taking medication and tolerating well. No interval complaints of any muscle pain or arthralgia. No significant liver changes with medications. Last lipid panel: fair control. Therapy reviewed regarding treatment of cholesterol management and include diet and Atorvastatin Calcium. #2. Type II Diabetes: Has had no polyuria polyphagia or polydipsia. Has had no hypoglycemic like responses. No new history of any numbness, tingling, weakness or visual problems. No nausea, anorexia or other constitutional symptoms. There has been no foot problems or non healing lesions. The last HAIC was [facility] HAIC: 9.2 Calculated MB mg%. CGM: No. Average blood sugars 125-150 mg%. Checking sugars : not at all. Medication Types Include: Sulfonylureas Secondary complications include none. Macro-vascular complications include none. Therapy reviewed regarding diabetic management and include Glimepiride Compliance: fair Renal Protection: not required at this stage Lipid management: statins Urinary microalbumin: A1 . Ophthalmological: has seen eye doctor within the last year. Control: Inadequate control > 8 #3. Sleep Apnea: Type: EILEEN Current doing well. No significant daytime somnolence or problems performing daily chores. Using CPAP on nightly basis . Overall has shown considerable improvement.[place] Sleepiness ScaleSitting and ReadinWatching TV: 1Sitting Inactive in a Public Place: 1Passenger in a Car: 1Lying Down in Afternoon: 0Sitting and Talking to someone: 0Sitting quietly after lunch: 1In a car while stopped or drivinScore Interpretation: 0-7 No evidence of abnormally sleepy Wellness Evaluation PHQ-2 Score Last Two Weeks Last Two Weeks: 0: Not at all 1: Several Days 2: More than half 3: Almost Every day #1. Little interest or pleasure in doing things Score: 0#2. Feeling down, depressed, or hopeless Score: 0Score 0FAST Stage: 1 No functional decline Basic ADLS Ambulation Normal YesEating YesBed Transfer YesWalker NoCane NoFalls NoMultiple Falls NoBathing and Showering YesDressing YesFeeding YesFunctional Mobility YesPersonal Hygiene YesToilet Hygiene YesHome Safety Yes Instrumental ADLS House Work YesTaking Medications YesShopping YesTelephone YesUsing Technology YesTransportation YesPreparing Meals Yes Additional Topics Advanced Directives Not DiscussedLiving Will Not Discussed Social and Physical Activities Drinking History: NoneExercise 20 Minutes per Week: Yes, some of timeDifficulty Driving Car: NoSmoking History: NoOther Problems: None,Falling,Orthostatic,Trou ble Eating,Teeth Denture Problems,Problems using Telephone,Tiredness or fatigue No Living Will on File! Active Medication ListGlimepiride 2 MG TABLET One DailyNorco 325 MG-7.5 MG (TABLET - ORAL) One Three Times DailyAtorvastatin Calcium 20 MG (TABLET - ORAL) One DailyAspirin 81 MG TABLET One DailyMultivitamin DailyCpap As Directed Vaccination and ImmunizationImmunizations and Vaccinations Discussed and Implemented if feasible In the Office. Else referred to pharmacies. ( ) 2024-03 INFLUENZA( ) 2017- TDAP( ) 2020-07 COVID MODERNA( ) 2024-03 COVID BOOSTER MODERNA Surgical [id number] No previous surgery Preventative TestingPreventative Testing Discussed and Scheduled if Acceptable to Patient ( ) 05/01/2024 Optometry( ) 04/12/2024 Albumin 4.4 G/DL N( ) 04/12/2024 HAIC 9.2 % OF TOTAL HGB H( ) 02/03/2024 LDCT ( 1 Years ) 02/02/2025(X) 06/02/2023 PSA 1.36 NG/ML N 06/02/2024( ) 06/02/2023 Micro Albumin 0.4 MG/DL N( ) 06/11/2017 Colonoscopy (10 Years) 06/11/2027 Social HistoryMarriedSmokes 1.5 packs daily for over 25 years quite 2009Drinks sociallyWorks as a laborer brush [place] Family HistoryMother 65 from CA of cervixFather at 63 from ASHD and CVATwo brothers one ASHD and CHF the other in good healthOne sister of CRF TEST RESULT RANGE UNITSHEMOGLOBIN A1C Date: 04/12/2024HEMOGLOBIN A1C 9.2 <5.7 % OF TOTAL HGBCOMPREHENSIVE METABOLIC PANEL, PLASMA Date: 04/12/2024SODIUM 143 135-146 MMOL/LPOTASSIUM 4.0 3.4-4.8 MMOL/LGLUCOSE 96 65-99 MG/DLUREA NITROGEN (BUN) 14 7-25 MG/DLCREATININE 0.82 0.70-1.35 MG/DLEGFR 99 > OR = 60 ML/MIN/1.06R4GWEQLFAXL, TOTAL 0.4 0.2-1.2 MG/DLALKALINE PHOSPHATASE 58 35-144 U/LAST 28 10-35 U/LALT 57 9-46 U/LLIPASE Date: 04/12/2024LIPASE 94 7-60 U/LLIPID PANEL, STANDARD Date: 04/12/2024HOLESTEROL, TOTAL 156 <200 MG/DLHDL CHOLESTEROL 35 > OR = 40 MG/DLTRIGLYCERIDES 250 <150 MG/DLLDL-CHOLESTEROL 88 MG/DL (CALC)CBC (INCLUDES DIFF/PLT) Date: 04/12/2024WHITE BLOOD CELL COUNT 3.6 3.8-10.8 THOUSAND/ULHEMOGLOBIN 15.3 13.2-17.1 G/DLHEMATOCRIT 48.7 38.5-50.0 %PLATELET COUNT 132 140-400 THOUSAND/UL Vik Arrieta MD [address] [facility], [facility] [address], [place], [address], [facility] 11/14/2024 16:45:57 02/22/20 25 text/htm l Patient Name: Darryl Beltre Of Service: Wednesday ( 02.21.2025 ): 1960 Age: 64 There has been approximately a 3 lb weight loss since 05/02/2024. This represents approximately a 1.3% change in weight. Weight change attributable to lifestyle changes. Vital Signs:Blood Pressure: Sitting Rt. Arm 120/78Pulse: Sitting 61 /min and RegularRespiratory Rate: 16Height 71 in or 1.8 mWeight 223 lb or 101.2 kgBMI 31.1Temperature: 97.2 F or 36.2 CPulse Oximetry: 95 % at rest on no oxygen Chief Complaint: Addressed in HPI Problems or conditions discussed in the HPI were the only ones reviewed during the encounter.Only social and family history addressed in the HPI were reviewed during this encounter. Attendants(s) + NoneConstitutional and Systemic Symptoms:none Medication Reconciliation: from medication list. [id number]: Ultrasound of the abdomen revealed hepatic steatosis no other significant anomalies 04-07-2024: CT of the abdomen reveals diffuse hepatic steatosis. History of Present Illness #1. Ulcerative type lesion at the base of the tongue duration approximately three weeks. No associated lymphadenopathy or drainage is noted. On examination there is a area probably a cm in diameter at the base of the tongue on the right side. No associated other induration or other abnormalities are noted. It has been going on for three weeks does hurt when he eats mainly. Particularly when he gets acidic type of food in the mouth or combination. Will need ENT consult.: Active Medication ListGlimepiride 2 MG TABLET One DailyNorco 325 MG-7.5 MG (TABLET - ORAL) One Three Times DailyAtorvastatin Calcium 20 MG (TABLET - ORAL) One DailyAspirin 81 MG TABLET One DailyMultivitamin DailyCpap As Directed Adverse Drug Reactions ReviewedNo Known Adverse Drug Reactions! Vaccination and Immunization( ) 2024-03 INFLUENZA( ) 2017-08 TDAP( ) 2020-07 COVID MODERNA( ) 2024-03 COVID BOOSTER MODERNAImmunizations and Vaccinations Discussed and Implemented if feasible In the Office. Else referred to pharmacies. 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 He was given antibiotics which did not change the lesions. He is an ex-smoker and a non tobacco user. Ernst Hernandez MD [address], [address], [place], [address], [place] [facility] [place] 03/14/2025 16:26:15
--- OUTSIDE RECORDS SUMMARY | 2025-03-28 16:26 | XMS_ITS | Clinical Summary ---
[facility] Address [address] [facility] [place] [address] Care Team Providers Care Set Up Person Name Role Phone Jordan Arrieta MD Primary Care Provider Allergies No known active allergies Medications pravastatin (PRAVACHOL) 20 mg tablet Take 20 mg by mouth daily. Active HYDROcodone-acet aminophen (NORCO) 5-325 mg per tabletIndication s:Pain Take 1 tablet by mouth as needed. Active Active Problems Problem Noted Date Diagnosed Date Lumbar stenosis with neurogenic claudication Assessment & Plan (07/27/2018 4:33 PM MR TEACHER): Mr. Guerrier has lumbar stenosis with neurogenic claudication. He also has a significant component of back and buttock pain on the left. We discussed different options including medication therapy injection and surgery. He wishes to consider. surgical intervention I have offered him at L3-5 laminectomy and fusion. Depending on the numbering system this could be considered L4-S1 decompression and fusion as the L5 level is sacralized. He will speak to his and consider his options. If the patient wishes to proceed with surgery, he will call our office and we would arrange for him to undergo L3 to 5 laminectomy and fusion. Pain of foot 02/15/2013 Surgical History Surgery Date Site/Laterality Comments ELBOW SURGERY 06/14/1999 - 06/13/2000 Right Medical History Medical History Date Comments Hypercholesteremia Sleep apnea with use of continuous positive airw ay pressure (CPAP) Family History Medical History Relation Name Comments Heart disease Brother 1 Hypertension Brother 1 Heart disease Brother 2 Heart disease Father Stroke Father Uterine cancer Mother Relation Name Status Comments Brother 1 Brother 2 Father Mother Social History Tobacco Use Types Packs/Day Years Used Date Smoking Tobacco: Former Smokeless Tobacco: Never Alcohol Use Standard Drinks/Week Comments Yes 0 (1 standard drink = 0.6 oz pur e alcohol) Occasionally Personal Safety Answer Date Recorded Getting School Help Needed Not on file 08/27 Sex and Gender Information Value Date Recorded Sex Assigned at Not on file Legal Sex Male 4:43 AM MR TEACHER Gender Identity Not on file Sexual Orientation Not on file 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 Not on file Not on file Not on file Obstetrics History Last Filed Vital Signs Vital Sign Reading Time Taken Comments Blood Pressure - - Pulse - - Temperature - - Respiratory Rate 12 07/27/2018 2:39 PM MR TEACHER Oxygen Saturation - - Inhaled Oxygen Concentration - - Weight 108.9 kg (240 lb) 07/27/2018 2:39 PM MR TEACHER Height 180.3 cm (5' 11) 07/27/2018 2:39 PM MR TEACHER Body Mass Index 33.47 07/27/2018 2:39 PM MR TEACHER Plan of Treatment Not on file Insurance SIG [id number] [id number] Care Teams Set Up Person Relationship Specialty Start Date End Date Jordan Arrieta MD PCP - General Internal Medicine 07/27/18
[2025-03-28 16:27] LABS: Hematocrit 46.6 % (42.0-52.0); Hemoglobin 14.4 g/dL (14.0-18.0); Immature Granulocyte Percent A 0.6 % (0-0.5); Lymphocytes Absolute Auto 0.91 K/mm3 (0.9-3.2); Mean Corpuscular HGB Conc 30.9 g/dl (32-36); Mean Corpuscular Hemoglobin 26.3 pg (26-34); Mean Corpuscular Volume 85.2 fl (80-100); Nucleated Red Blood Cells Absolute Auto 0.000 K/mm3 (0.0-0.012); Nucleated Red Blood Cells Perc 0.0 % (0.0-0.2); Platelet Count Result 273 k/mm3 (150-375); Red Blood Count 5.47 M/mm3 (4.6-6.20); White Blood Count 8.5 K/mm3 (4.5-10.0)
--- NOTE | 2025-03-28 16:27 | PC.NURSE ---
Pt. to CT
[2025-03-28 16:37] LABS: INR 1.1; Prothrombin Time 14.5 Seconds (11.1-14.7)
[2025-03-28 16:38] LABS: Partial Thromboplastin Time 36.3 Seconds (22.3-36.8)
[2025-03-28 16:42] LABS: Alanine Aminotransferase 107 U/L (6-50); Albumin Level 4.2 g/dL (3.5-5.1); Alkaline Phosphatase 602 U/L (38-126); Anion Gap 11 mmol/L (4-12); Aspartate Amino Transferase 149 U/L (17-59); Bilirubin,Total 1.7 mg/dL (0.2-1.3); Blood Urea Nitrogen 11 mg/dL (9-20); Calcium 9.6 mg/dL (8.4-10.2); Carbon Dioxide 28 mmol/L (22-30); Chloride 95 mmol/L (98-107); Creatine Kinase 91 U/L (55-170); Estimated CRCL calculation 86 ml/min; Estimated Glomerular Filt Rate > 60; Glucose 100 mg/dL (65-110); Lipase 407 U/L (23-300); Potassium 4.4 mmol/L (3.4-5.0); Sodium 134 mmol/L (137-145); Total Protein 9.1 g/dL (6.3-8.2)
[2025-03-28 16:43] LABS: Estimated CRCL calculation 81 ml/min; Estimated Glomerular Filt Rate > 60
[2025-03-28 17:05] VITALS: BP 148/86; PULSE 90; RESP 19; O2SAT 97
[2025-03-28 17:15] LABS: Add Urine Microscopic? YES; Appearance Urine Clear (Clear); Glucose Urine UA Negative (Negative); Leukocyte Esterase Ur Trace LEU/UL (Negative); Nitrate Urine Negative (Negative); Non Pathogenic Casts 0-2; Specific Grav Ur 1.025 (1.001-1.035)
--- OUTSIDE RECORDS SUMMARY | 2025-03-28 17:44 | XMS_ITS | Clinical Summary ---
[facility] Organization [facility] Address [address] [facility] [place] [place] [address] Care Team Providers Care Skein Mercerizing Machine Operator Name Role Phone Jordan Arrieta MD Primary Care Provider Allergies No known active allergies Medications pravastatin (PRAVACHOL) 20 mg tablet Take 20 mg by mouth daily. Active HYDROcodone-acet aminophen (NORCO) 5-325 mg per tabletIndication s:Pain Take 1 tablet by mouth as needed. Active Active Problems Problem Noted Date Diagnosed Date Lumbar stenosis with neurogenic claudication Assessment & Plan (07/27/2018 4:33 PM MATHEMATICS TECHNICIAN): Mr. 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 Not on file Not on file Obstetrics History Last Filed Vital Signs Vital Sign Reading Time Taken Comments Blood Pressure - - Pulse - - Temperature - - Respiratory Rate 12 07/27/2018 2:39 PM MATHEMATICS TECHNICIAN Oxygen Saturation - - Inhaled Oxygen Concentration - - Weight 108.9 kg (240 lb) 07/27/2018 2:39 PM MATHEMATICS TECHNICIAN Height 180.3 cm (5' 11) 07/27/2018 2:39 PM MATHEMATICS TECHNICIAN Body Mass Index 33.47 07/27/2018 2:39 PM MATHEMATICS TECHNICIAN Plan of Treatment Not on file Insurance SIG [id number] [facility] Address: [facility] [id number] [id number] [address] [id number] Care Teams Skein Mercerizing Machine Operator Relationship Specialty Start Date End Date Jordan Arrieta MD PCP - General Internal Medicine 07/27/18
--- OUTSIDE RECORDS SUMMARY | 2025-03-28 17:45 | XMS_ITS | Clinical Summary ---
Author Organization [facility] Address [address] [place] [id number] Care Team Providers Care Lead Injection Mold Technician Name Role Phone Jordan Arrieta MD Primary Care Provider [phone] Social History Tobacco Use Types Packs/Day Years Used Date Smoking Tobacco: Never Assessed Sex and Gender Information Value Date Recorded Sex Assigned at Not on file Legal Sex Male 10:45 AM STAFF MIDWIFE/APPRENTICESHIP DIRECTOR Gender Identity Not on file Sexual Orientation [...] this topic Insurance [facility] [employer] Care Teams Lead Injection Mold Technician Relationship Specialty Start Date End Date Jordan Arrieta MD [address] [id number] PCP - General INTERNAL MEDICINE 04/20/24
[2025-03-28 18:00] VITALS: BP 148/86; PULSE 96; RESP 19; O2SAT 96
[2025-03-28] MEDS: ONDANSETRON INJ 4 MG/2 ML VIAL IV PUSH (19:15)
[2025-03-28 19:16] VITALS: BP 149/84; PULSE 96; RESP 16; O2SAT 95
[2025-03-28] MEDS: MORPHINE SULFATE (*CRX) 4 MG/ML INJ IV PUSH (19:16)
--- NOTE | 2025-03-28 20:31 | PC.NURSE ---
Pt. at bedside has additional questions for MD. Dr. Pichardo at bedside answering questions.
[2025-03-28 21:10] VITALS: BMI 28.5
[2025-03-28 21:15] VITALS: BP 135/78; PULSE 99; RESP 16; TEMP 37.3; O2SAT 94
--- NOTE | 2025-03-28 21:17 | ADMGEN ---
This patient, Darryl Guerrier, was admitted to [facility] Surg Room 317-01. Patient/family oriented to hospital policies and general routines including ID bracelet, bed and alarms, visiting hours, pain management, procedures, bathroom and other care routines, personal items, smoking policy, room service/diet, and visiting hours. Information on how to activate the Rapid Response Team has been discussed. Patient/Family are encouraged to report perceived risks to care and to ask questions if they do not understand what they are told or what they should do.
--- NOTE | 2025-03-28 22:23 | PM.IMHP ---
H&P: HPI History of Present Illness Date/Time: 03/28/25 22:23 Chief Complaint: Abdominal pain Narrative: This is a 64-year-old male patient who has history of hyperlipidemia. The patient stated that he has had an unintentional 14 lb weight loss in the last 2 weeks. He is also been complaining of some of the like 0 discomfort. The patient stated that he has been nauseated and had dark urine as well. Patient recently saw his primary care doctor to have a lesion of his tongue biopsy in the near future. Next CT of the chest/abdomen/pelvis was read as the following Multiple pulmonary nodules and hepatic masses consistent with metastatic disease. As a larger subcarinal mass abutting the esophagus which could also represent metastatic lymphadenopathy although also raises suspicion for a primary malignancy arising from the distal esophagus or the intrathoracic stomach with small sliding-type hiatal hernia. Consider ultrasound-guided liver biopsy. 2. 3 cm mass in the right peripheral zone of the enlarged prostate. Correlate with PSA level. Managed Care Specialist and oncologist having consulted. Sodium was slightly low at 134, chloride 95, total bilirubin 1.7, AST 149, ALT 107, alkaline phosphatase 6.2, total protein 9.1, and lipase 4 7. Urine has 1+ ketones, urine bilirubin 1+, urine urobilinogen 2.0 with leukocyte esterase trace. The patient was given IV fluids, Zofran, and morphine in the emergency room. The patient is being admitted to inpatient on the date of service of 03/28/2025 Review of Systems Constitutional: Constitutional: Reports as per HPI and Reports no additional constitutional complaints Eyes: Eyes: Reports as per HPI and Reports no additional eye complaints ENT: Reports system reviewed and no additional complaints, except as documented and Reports Normal hearing present Cardiovascular: Cardiovascular: Reports no additional cardiovascular complaints Respiratory: Respiratory: Reports as per HPI and Reports no additional respiratory complaints Gastrointestinal: Gastrointestinal: Reports as per HPI and Reports no additional gastrointestinal complaints Musculoskeletal: Musculoskeletal: Reports no additional musculoskeletal complaints Integumentary/Breasts: Skin/Breast: Reports system reviewed and no additional complaints, except as docu Neurologic: Reports system reviewed and no additional complaints, except as documented and Reports Normal hearing present Psychiatric: Psychiatric: Reports no additional psychiatric complaints and Reports as per HPI Hematologic/Lymphatic: Hematologic/Lymphatic: Reports no additional hematologic/lymphatic complaints Allergic/Immunologic: Allergic/Immunologic: Reports no additional allergic/immunologic complaints [facility] Past Medical History Medical History (Updated 03/29/25 @ 12:10 by Callum Mora MD) Weight loss Epigastric pain Metastasis to liver Anorexia Pulmonary nodule History of neck problems History of back problems Testicular hypofunction Hyperlipidemia Sleep apnea, unspecified Surgical History Surgical History History of colonoscopy History of surgery on arm Family History Family History Father Cerebrovascular accident, Onset Age: 65 Sibling Family history of kidney disease, Onset Age: 34 Family history of congestive heart failure, Onset Age: 50 Family history of sleep apnea Coronary artery disease of bypass graft of [place] heart with stable angina pectoris Mother Family history of malignant neoplasm of cervix, Onset Age: 63 Social History Social History (Updated 03/28/25 @ 23:21 by Aranza Queen APRN) Social History: Quit cigarettes 2008 but continues to smoke a cigars about 1-2 per day. 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 He is and has 2 children. Code status: Full code Smoking packs per day: 1.5 Smoking cigarettes per day: 30.0 Years smoked: 40 Smoking pack-years: 60.00 Smoking status: Former smoker Second hand tobacco smoke exposure: Yes Smoking end date: 06/14/03 Alcohol intake: former Drinks per week: 12 Alcohol use details: Beers Substance use: never Lack of Transportation: No Lack of Food: Never True Current Housing: I Have Housing Concerned About Future Housing: No Difficulty Paying Gas/Electric Bills: No Difficulty Paying for Meds: No Currently Unemployed: No Education: High School Diploma/GED Difficulty w/ Childcare or Family Care: No Spiritual care concerns: No Meds Home Medications and Allergies Home Medications ?Medication ?Instructions ?Recorded ?Confirmed ?Type hydrocodone 7.5 mg-acetaminophen 1 tablet PO Q8H PRN pain 04/12/20 03/28/25 History 325 mg tablet ([place]) atorvastatin 20 mg tablet 20 mg PO QHS 04/24/21 03/28/25 History ascorbic acid (vitamin C) 1,000 mg 1,000 mg PO QHS 03/28/25 03/28/25 History tablet (Vitamin C) aspirin 81 mg tablet 81 mg PO QHS 03/28/25 03/28/25 History cinnamon bark 500 mg capsule 500 mg PO QHS 03/28/25 03/28/25 History (Cinnamon) lcgkybevcsly-ndvzaafn-rkwqdm tablet 1 tablet PO QHS 03/28/25 03/28/25 History Allergies Allergy/AdvReac Type Severity Reaction Status Date / Time No Known Allergies Allergy Verified 03/29/25 10:58 Vital Signs Vital Signs - 24 hr 03/28/25 14:15 03/28/25 17:05 03/28/25 18:00 Temperature 99.5 F Pulse Rate 91 90 96 Respiratory Rate 20 19 19 Blood Pressure 136/69 148/86 H 148/86 H Pulse Oximetry 98 97 96 Oxygen Delivery Room Air 03/28/25 19:16 Temperature Pulse Rate 96 Respiratory Rate 16 Blood Pressure 149/84 H Pulse Oximetry 95 Oxygen Delivery Exam Const: General: cooperative, comfortable, no acute distress, well developed, awake, Physically active, average body habitus and well nourished Nutritional Appearance: average body habitus and well nourished Orientation/consciousness: oriented to person, oriented to place, oriented to time and patient oriented x3 Limitations: no limitations HENMT: Head: normal to inspection, No palpable skull fracture present, normocephalic and atraumatic Eyes: General: appearance normal, both eyes and all related structures Alignment and Position: alignment normal Periorbital: periorbital findings normal Neck: Neck: normal visual inspection and full ROM Chest: Chest palpation & inspection: normal inspection of the chest Resp: Effort & Inspection: normal respiratory effort Auscultation: clear to auscultation bilaterally Cardio: Palpation: normal PMI Rate: regular rate Rhythm: regular rhythm Heart sounds: S1 normal heart sound present and S2 normal heart sound present Peripheral pulses: Peripheral pulses 2+ throughout GI: Inspection: normal to inspection GI Palp: Yes Soft to palpation and Yes Tenderness to palpation present (GI) (Anneliese umbilical area) Auscultation: normal bowel sounds Back/Spine/Pelvis: Back: no CVA tenderness Skin: General skin exam: normal color Lesions: no lesions Rashes: no rashes Trauma: no lacerations or abrasions Wounds: no wounds Hair: normal Nails: normal Neuro: General: oriented to person, oriented to place, oriented to time and patient oriented x3 Cranial nerves: Yes Normal hearing present Cognition (Neuro): normal cognition Speech: normal speech Gait exam (Neuro): Normal gait present Motor exam (neuro): 5/5 motor strength present throughout Sensory Exam: normal sensation Extrem: General: normal to inspection Right upper extremity: normal to inspection and shoulder/upper arm Left upper extremity: normal to inspection and shoulder/upper arm Right lower extremity: normal to inspection Left lower extremity: normal to inspection Psych: Appearance: grossly normal Mental Status: mental status grossly normal Speech and movement: Normal speech and movement present Affect: normal affect Attitude: cooperative Thought process: Normal thought process present Thought content: Yes Normal thought content present Insight: Good insight present (Psych) Judgement: Good judgement present (Psych) H&P: Results Labs Labs: Short CBC 03/28/25 Range/Units 16:18 WBC 8.5 (4.5-10.0) K/mm3 Hgb 14.4 (14.0-18.0) g/dL Hct 46.6 (42.0-52.0) % Plt Count 273 (150-375) k/mm3 BMP 03/28/25 03/28/25 16:18 16:41 Sodium 134 L Potassium 4.4 Chloride 95 L Carbon Dioxide 28 BUN 11 Creatinine 0.84 0.90 Glucose 100 Calcium 9.6 Cardiac Enzymes 03/28/25 Range/Units 16:18 Total Creatine Kinase 91 (55-170) U/L Liver Function 03/28/25 Range/Units 16:18 Total Bilirubin 1.7 H (0.2-1.3) mg/dL AST 149 H (17-59) U/L ALT 107 H (6-50) U/L Alkaline Phosphatase 602 H (38-126) U/L Albumin 4.2 (3.5-5.1) g/dL Urine 03/28/25 Range/Units 17:00 Urine Color Dark yellow (Yellow) Urine Appearance Clear (Clear) Urine pH 6.0 (5.0-9.0) Ur Specific [place] 1.025 (1.001-1.035) Urine Protein Trace (Negative) mg/dL Urine Glucose (UA) Negative (Negative) mg/dL Imaging CT scan - abdomen: Radiologist's impression: Impressions Chest/Abdomen/Pelvis CT 03/28/25 17:01 IMPRESSION: 1. Multiple pulmonary nodules and hepatic masses consistent with metastatic disease. As a larger subcarinal mass abutting the esophagus which could also represent metastatic lymphadenopathy although also raises suspicion for a primary malignancy arising from the distal esophagus or the intrathoracic stomach with small sliding-type hiatal hernia. Consider ultrasound-guided liver biopsy. 2. 3 cm mass in the right peripheral zone of the enlarged prostate. Correlate with PSA level. Assessment and Plan Assessment and plan (1) Esophageal mass: Code(s): K22.89 - Other specified disease of esophagus Status: Acute Assessment and Plan: -CT was read as the following Multiple pulmonary nodules and hepatic masses consistent with metastatic disease. As a larger subcarinal mass abutting the esophagus which could also represent metastatic lymphadenopathy although also raises suspicion for a primary malignancy arising from the distal esophagus or the intrathoracic stomach with small sliding-type hiatal hernia. Consider ultrasound-guided liver biopsy. 2. 3 cm mass in the right peripheral zone of the enlarged prostate. Correlate with PSA level. -the patient has had an unintentional 14 lb weight loss in the last 2 weeks. -GI has been consult for possible EGD. -the patient was made NPO after midnight. -the patient also has multiple liver masses as well as multiple pulmonary nodules. (2) Liver masses: Code(s): R16.0 - Hepatomegaly, not elsewhere classified Status: Acute Assessment and Plan: - Multiple pulmonary nodules and hepatic masses consistent with metastatic disease. As a larger subcarinal mass abutting the esophagus which could also represent metastatic lymphadenopathy although also raises suspicion for a primary malignancy arising from the distal esophagus or the intrathoracic stomach with small sliding-type hiatal hernia. Consider ultrasound-guided liver biopsy. 2. 3 cm mass in the right peripheral zone of the enlarged prostate. Correlate with PSA level. -may consider ultrasound-guided liver biopsy. -liver enzymes elevated. -pain management. (3) Sleep apnea, unspecified: Code(s): G47.30 - Sleep apnea, unspecified Status: Acute Assessment and Plan: -Home settings for CPAP (4) Hyperlipidemia: Code(s): E78.5 - Hyperlipidemia, unspecified Status: Acute Assessment and Plan: -liver enzymes are elevated statin is on hold at this time Quality VTE Prophylaxis VTE prophylaxis: mechanical ordered
[2025-03-28] MEDS: SODIUM CHLORIDE 0.9% IV 1,000 ML 125 ML IV CONT (23:01)
[2025-03-28] MEDS: HYDROcodone/acetaminophen (*CRX) 5-325 MG TABLET 1 TAB PO (23:50)
[2025-03-28 23:51] VITALS: RESP 17
[2025-03-29] VITALS (7 sets, daily range): BP systolic 98–141; BP diastolic 49–86; PULSE 78–89; RESP 14–28; TEMP 35.8–36.9; O2SAT 94–98; BMI 28.5
[2025-03-29] MEDS: SODIUM CHLORIDE 0.9% IV 1,000 ML 125 ML IV CONT (06:51)
--- NOTE | 2025-03-29 09:14 | P.PNIM_ITS ---
Progress Note: A&P Assessment and Plan (1) Esophageal mass: Code(s): K22.89 - Other specified disease of esophagus Status: Acute Assessment and Plan: -CT was read as the following Multiple pulmonary nodules and hepatic masses consistent with metastatic disease. As a larger subcarinal mass abutting the esophagus which could also represent metastatic lymphadenopathy although also raises suspicion for a primary malignancy arising from the distal esophagus or the intrathoracic stomach with small sliding-type hiatal hernia. Consider ultrasound-guided liver biopsy. 2. 3 cm mass in the right peripheral zone of the enlarged prostate. Correlate with PSA level. -the patient has had an unintentional 14 lb weight loss in the last 2 weeks. -GI has been consult for possible EGD. -the patient was made NPO after midnight. -the patient also has multiple liver masses as well as multiple pulmonary nodules. 03/29: -Pending EGD, GI consult, and onc consult (2) Liver masses: Code(s): R16.0 - Hepatomegaly, not elsewhere classified Status: Acute Assessment and Plan: - Multiple pulmonary nodules and hepatic masses consistent with metastatic disease. As a larger subcarinal mass abutting the esophagus which could also represent metastatic lymphadenopathy although also raises suspicion for a primary malignancy arising from the distal esophagus or the intrathoracic stomach with small sliding-type hiatal hernia. Consider ultrasound-guided liver biopsy. 2. 3 cm mass in the right peripheral zone of the enlarged prostate. Correlate with PSA level. -may consider ultrasound-guided liver biopsy. -liver enzymes elevated. -pain management. 03/29: -Pain 6/10, increasing norco to x2 tabs q4hrs (3) Sleep apnea, unspecified: Code(s): G47.30 - Sleep apnea, unspecified Status: Acute Assessment and Plan: -Home settings for CPAP (4) Hyperlipidemia: Code(s): E78.5 - Hyperlipidemia, unspecified Status: Acute Assessment and Plan: -liver enzymes are elevated statin is on hold at this time Plan Pending onc and GI consult/note Time Spent With Patient Time: 45 Subjective Date/time seen: 03/29/25 1400 Interval history: Pt resting in bed with son, , and another family member present when I entered his room post EGD. Pt told me that a mass was found with lesions also seen on the liver; pt is unsure if liver biopsy obtained. Pt c/o 6/10 pain and is interested in an increase of pain medication when offered. Pt interested in transferring to [facility] after onc eval / biopsy results. Review of Systems Constitutional: Constitutional: Reports as per HPI and Reports no additional constitutional complaints Eyes: Eyes: Reports as per HPI and Reports no additional eye complaints ENT: Reports system reviewed and no additional complaints, except as documented and Reports Normal hearing present Cardiovascular: Cardiovascular: Reports no additional cardiovascular complaints Respiratory: Respiratory: Reports as per HPI and Reports no additional respiratory complaints Gastrointestinal: Gastrointestinal: Reports as per HPI and Reports no additional gastrointestinal complaints Musculoskeletal: Musculoskeletal: Reports no additional musculoskeletal complaints Integumentary/Breasts: Skin/Breast: Reports system reviewed and no additional complaints, except as docu Neurologic: Reports system reviewed and no additional complaints, except as documented and Reports Normal hearing present Psychiatric: Psychiatric: Reports no additional psychiatric complaints and Reports as per HPI Hematologic/Lymphatic: Hematologic/Lymphatic: Reports no additional hematologic/lymphatic complaints Allergic/Immunologic: Allergic/Immunologic: Reports no additional allergic/immunologic complaints Exam Const: General: cooperative, no acute distress, well developed, awake, Physically active, uncomfortable, average body habitus and well nourished Nutritional Appearance: average body habitus and well nourished Orientation/consciousness: oriented to person, oriented to place, oriented to time and patient oriented x3 Limitations: no limitations HENMT: Head: normal to inspection, No palpable skull fracture present, normocephalic and atraumatic Eyes: General: appearance normal, both eyes and all related structures Alignment and Position: alignment normal Periorbital: periorbital findings normal Neck: Neck: normal visual inspection and full ROM Chest: Chest palpation & inspection: normal inspection of the chest Resp: Effort & Inspection: normal respiratory effort Auscultation: clear to auscultation bilaterally Cardio: Palpation: normal PMI Rate: regular rate Rhythm: regular rhythm Heart sounds: S1 normal heart sound present and S2 normal heart sound present Peripheral pulses: Peripheral pulses 2+ throughout GI: Inspection: normal to inspection Auscultation: normal bowel sounds Other: palpable mass under sternal bone : General: Yes no CVA tenderness Back/Spine/Pelvis: Back: no CVA tenderness Skin: General skin exam: normal color Lesions: no lesions Rashes: no rashes Trauma: no lacerations or abrasions Wounds: no wounds Hair: normal Nails: normal Neuro: General: oriented to person, oriented to place, oriented to time and patient oriented x3 Cranial nerves: Yes Normal hearing present Cognition (Neuro): normal cognition Speech: normal speech Gait exam (Neuro): Normal gait present Motor exam (neuro): Normal motor muscle tone present throughout Sensory Exam: normal sensation Extrem: General: normal to inspection Right upper extremity: normal to inspection and shoulder/upper arm Left upper extremity: normal to inspection and shoulder/upper arm Right lower extremity: normal to inspection Left lower extremity: normal to inspection Psych: Appearance: grossly normal Mental Status: mental status grossly normal Speech and movement: Normal speech and movement present Affect: normal affect Attitude: cooperative Thought process: Normal thought process present Insight: Good insight present (Psych) Judgement: Good judgement present (Psych) Objective Data Vital Signs Vital Signs: Vital Signs - 24 hr 03/28/25 14:15 03/28/25 17:05 03/28/25 18:00 Temperature 99.5 F Pulse Rate 91 90 96 Respiratory Rate 20 19 19 Blood Pressure 136/69 148/86 H 148/86 H Pulse Oximetry 98 97 96 Oxygen Delivery Room Air 03/28/25 19:16 03/28/25 21:15 03/28/25 23:00 Temperature 99.2 F Pulse Rate 96 99 Respiratory Rate 16 16 Blood Pressure 149/84 H 135/78 Pulse Oximetry 95 94 Oxygen Delivery Room Air 03/28/25 23:51 03/29/25 02:26 03/29/25 05:35 Temperature 96.4 F L Pulse Rate 89 Respiratory Rate 17 18 Blood Pressure 136/86 Pulse Oximetry 95 Oxygen Delivery Autopap Autopap Intake/Output Intake/Output: Intake & Output 03/26/25 03/27/25 03/28/25 03/29/25 23:59 23:59 23:59 23:59 Intake Total 979.2 Balance 979.2 Meds/Results Medications: Active Medications Generic Name Dose Route Start Last Admin Trade Name Freq PRN Reason Stop Dose Admin Acetaminophen 650 mg 03/28/25 18:50 Acetaminophen 325 Mg Tablet PO Q4H PRN Mild Pain (1-3) or Fever Hydrocodone Bitart/Acetaminophen 1 tab 03/28/25 23:10 03/28/25 23:50 Hydrocodone/Acetaminophen (*Crx) 5-325 Mg Tablet PO 1 tab Q4H PRN Administration Pain Rated 4-6 Famotidine 20 mg 03/29/25 09:00 Famotidine 20 Mg/2 Ml Vial IV PUSH Q12HR KALEIGH Hydromorphone HCl 0.5 mg 03/28/25 23:11 Hydromorphone Hcl Inj (*Crx) 1 Mg/Ml Syr IV PUSH Q3H PRN Pain Rated 7-10 Sodium Chloride 1,000 mls @ 125 mls/hr 03/28/25 18:50 03/29/25 06:51 Normal Saline Iv IV CONT 125 mls/hr .Q8H KLAEIGH Administration Ondansetron HCl 4 mg 03/28/25 18:50 03/28/25 19:15 Ondansetron Inj 4 Mg/2 Ml Vial IV PUSH 4 mg Q4H PRN Administration Nausea Radiology Results: ITS Impressions Chest/Abdomen/Pelvis CT 03/28/25 17:01 IMPRESSION: 1. Multiple pulmonary nodules and hepatic masses consistent with metastatic disease. As a larger subcarinal mass abutting the esophagus which could also represent metastatic lymphadenopathy although also raises suspicion for a primary malignancy arising from the distal esophagus or the intrathoracic stomach with small sliding-type hiatal hernia. Consider ultrasound-guided liver biopsy. 2. 3 cm mass in the right peripheral zone of the enlarged prostate. Correlate with PSA level. Labs Labs: Laboratory Results - last 24 hr 03/28/25 03/28/25 03/28/25 16:18 16:19 16:41 WBC 8.5 RBC 5.47 Hgb 14.4 Hct 46.6 MCV 85.2 MCH 26.3 MCHC 30.9 L RDW 14.9 H Plt Count 273 MPV 9.5 Immature Gran % (Auto) 0.6 H Neut % (Auto) 77.5 H Lymph % (Auto) 10.7 L [place] % (Auto) 10.2 H Eos % (Auto) 0.4 Baso % (Auto) 0.6 Lymph # (Auto) 0.91 [place] # (Auto) 0.9 H Eos # (Auto) 0.0 Baso # (Auto) 0.1 Abs Immat Gran (auto) 0.05 H Absolute Neuts (auto) 6.6 Absolute Nucleated RBC 0.000 Nucleated RBC % 0.0 PT 14.5 INR 1.1 APTT 36.3 Sodium 134 L Potassium 4.4 Chloride 95 L Carbon Dioxide 28 Anion Gap 11 BUN 11 Creatinine 0.84 0.90 Estim Creat Clear Calc 86 81 Estimated GFR > 60 > 60 Glucose 100 Calcium 9.6 Total Bilirubin 1.7 H AST 149 H ALT 107 H Alkaline Phosphatase 602 H Total Creatine Kinase 91 Total Protein 9.1 H Albumin 4.2 Lipase 407 H Urine Color Urine Appearance Urine pH Ur Specific [place] Urine Protein Urine Glucose (UA) Urine Ketones Ur Blood (Man) Urine Nitrate Urine Bilirubin Urine Urobilinogen Leukocyte Esterase Rfl Urine RBC Urine WBC Ur Squamous Epith Cells Urine Bacteria Urine Casts 03/28/25 17:00 WBC RBC Hgb Hct MCV MCH MCHC RDW Plt Count MPV Immature Gran % (Auto) Neut % (Auto) Lymph % (Auto) [place] % (Auto) Eos % (Auto) Baso % (Auto) Lymph # (Auto) [place] # (Auto) Eos # (Auto) Baso # (Auto) Abs Immat Gran (auto) Absolute Neuts (auto) Absolute Nucleated RBC Nucleated RBC % PT INR APTT Sodium Potassium Chloride Carbon Dioxide Anion Gap BUN Creatinine Estim Creat Clear Calc Estimated GFR Glucose Calcium Total Bilirubin AST ALT Alkaline Phosphatase Total Creatine Kinase Total Protein Albumin Lipase Urine Color Dark yellow Urine Appearance Clear Urine pH 6.0 Ur Specific [place] 1.025 Urine Protein Trace Urine Glucose (UA) Negative Urine Ketones 1+ H Ur Blood (Man) Negative Urine Nitrate Negative Urine Bilirubin 1+ H Urine Urobilinogen 2.0 H Leukocyte Esterase Rfl Trace H Urine RBC 0-2 Urine WBC 0-5 Ur Squamous Epith Cells None seen Urine Bacteria None seen Urine Casts 0-2 Quality VTE Prophylaxis VTE prophylaxis: mechanical ordered
[2025-03-29] MEDS: HYDROcodone/acetaminophen (*CRX) 5-325 MG TABLET 1 TAB PO (09:15)
[2025-03-29] MEDS: FAMOTIDINE 20 MG/2 ML VIAL IV PUSH ×2 (09:18→20:12)
[2025-03-29] MEDS: LACTATED RINGERS 1,000 ML 150 ML IV CONT (11:02)
--- NOTE | 2025-03-29 11:11 | WPDANESEPPF ---
Anes - Initial Pre Proc Eval Procedure: Operation Date: 03/29/25 16:30 Proposed Procedures p Esophagogastroduodenoscopy - Callum Mora MD Date/Time: 03/29/25 11:11 Surgeon: Diamond Rockwell MD Pre Op Diagnosis: New onset malignancy with metastatic disease Patient Data Age: 64 Gender: M Height: 1.83 m Weight: 95.5 kg Last Vital Signs Temp 98.4 F 03/29/25 10:59 Pulse 83 03/29/25 10:59 Resp 16 03/29/25 10:59 BP 130/73 03/29/25 10:59 Pulse Ox 94 03/29/25 10:59 O2 Del Method Room Air 03/29/25 10:59 Allergies Allergy/AdvReac Type Severity Reaction Status Date / Time No Known Allergies Allergy Verified 03/29/25 10:58 Home Medications ?Medication ?Instructions ?Recorded ?Confirmed ?Type hydrocodone 7.5 mg-acetaminophen 1 tablet PO Q8H PRN pain 04/12/20 03/28/25 History 325 mg tablet ([place]) atorvastatin 20 mg tablet 20 mg PO QHS 04/24/21 03/28/25 History ascorbic acid (vitamin C) 1,000 mg 1,000 mg PO QHS 03/28/25 03/28/25 History tablet (Vitamin C) aspirin 81 mg tablet 81 mg PO QHS 03/28/25 03/28/25 History cinnamon bark 500 mg capsule 500 mg PO QHS 03/28/25 03/28/25 History (Cinnamon) [id number] tablet 1 tablet PO QHS 03/28/25 03/28/25 History Laboratory Tests 03/28/25 03/28/25 03/28/25 16:18 16:19 16:41 WBC 8.5 K/mm3 (4.5-10.0) RBC 5.47 M/mm3 (4.6-6.20) Hgb 14.4 g/dL (14.0-18.0) Hct 46.6 % (42.0-52.0) MCV 85.2 fl (80-100) MCH 26.3 pg (26-34) MCHC 30.9 L g/dl (32-36) RDW 14.9 H % (11.5-14.5) Plt Count 273 k/mm3 (150-375) MPV 9.5 fl (7.4-10.4) Immature Gran % (Auto) 0.6 H % (0-0.5) Neut % (Auto) 77.5 H % (45.5-73.1) Lymph % (Auto) 10.7 L % (18.3-44.2) [place] % (Auto) 10.2 H % (2.6-8.5) Eos % (Auto) 0.4 % (0-4.4) Baso % (Auto) 0.6 % (0.2-1.2) Lymph # (Auto) 0.91 K/mm3 (0.9-3.2) [place] # (Auto) 0.9 H K/mm3 (0.1-0.6) Eos # (Auto) 0.0 K/mm3 (0-0.3) Baso # (Auto) 0.1 K/mm3 (0.0-0.1) Abs Immat Gran (auto) 0.05 H K/mm3 (0.00-0.031) Absolute Neuts (auto) 6.6 K/mm3 (1.3-6.7) Absolute Nucleated RBC 0.000 K/mm3 (0.0-0.012) Nucleated RBC % 0.0 % (0.0-0.2) PT 14.5 Seconds (11.1-14.7) INR 1.1 APTT 36.3 Seconds (22.3-36.8) Sodium 134 L mmol/L (137-145) Potassium 4.4 mmol/L (3.4-5.0) Chloride 95 L mmol/L (98-107) Carbon Dioxide 28 mmol/L (22-30) Anion Gap 11 mmol/L (4-12) BUN 11 mg/dL (9-20) Creatinine 0.84 mg/dL 0.90 mg/dL (0.7-1.3) (0.8-1.5) Estim Creat Clear Calc 86 ml/min 81 ml/min Estimated GFR > 60 > 60 (59 - ) (59 - ) Glucose 100 mg/dL (65-110) Calcium 9.6 mg/dL (8.4-10.2) Total Bilirubin 1.7 H mg/dL (0.2-1.3) AST 149 H U/L (17-59) ALT 107 H U/L (6-50) Alkaline Phosphatase 602 H U/L (38-126) Total Creatine Kinase 91 U/L (55-170) Total Protein 9.1 H g/dL (6.3-8.2) Albumin 4.2 g/dL (3.5-5.1) Lipase 407 H U/L (23-300) Urine Color Urine Appearance Urine pH Ur Specific [place] Urine Protein Urine Glucose (UA) Urine Ketones Ur Blood (Man) Urine Nitrate Urine Bilirubin Urine Urobilinogen Leukocyte Esterase Rfl Urine RBC Urine WBC Ur Squamous Epith Cells Urine Bacteria Urine Casts 03/28/25 17:00 WBC RBC Hgb Hct MCV MCH MCHC RDW Plt Count MPV Immature Gran % (Auto) Neut % (Auto) Lymph % (Auto) [place] % (Auto) Eos % (Auto) Baso % (Auto) Lymph # (Auto) [place] # (Auto) Eos # (Auto) Baso # (Auto) Abs Immat Gran (auto) Absolute Neuts (auto) Absolute Nucleated RBC Nucleated RBC % PT INR APTT Sodium Potassium Chloride Carbon Dioxide Anion Gap BUN Creatinine Estim Creat Clear Calc Estimated GFR Glucose Calcium Total Bilirubin AST ALT Alkaline Phosphatase Total Creatine Kinase Total Protein Albumin Lipase Urine Color Dark yellow (Yellow) Urine Appearance Clear (Clear) Urine pH 6.0 (5.0-9.0) Ur Specific [place] 1.025 (1.001-1.035) Urine Protein Trace mg/dL (Negative) Urine Glucose (UA) Negative mg/dL (Negative) Urine Ketones 1+ H mg/dL (Negative) Ur Blood (Man) Negative (Negative) Urine Nitrate Negative (Negative) Urine Bilirubin 1+ H (Negative) Urine Urobilinogen 2.0 H mg/dL (<2.0) Leukocyte Esterase Rfl Trace H JOSLYN/UL (Negative) Urine RBC 0-2 /hpf (0-2) Urine WBC 0-5 /hpf (0-3) Ur Squamous Epith Cells None seen /hpf (Few) Urine Bacteria None seen /hpf Urine Casts 0-2 Patient hx anesthesia problems: none Family hx anesthesia problems: none Results Review: All pre-operative results and documents have been reviewed as part of the pre-operative evaluation. [facility] Past Medical History Medical History (Updated 03/28/25 @ 23:27 by Aranzajulián Queen APRN) Pulmonary nodule History of neck problems History of back problems Testicular hypofunction Hyperlipidemia Sleep apnea, unspecified Surgical History Surgical History History of colonoscopy History of surgery on arm Family History Family History Father Cerebrovascular accident, Onset Age: 65 Sibling Family history of kidney disease, Onset Age: 34 Family history of congestive heart failure, Onset Age: 50 Family history of sleep apnea Coronary artery disease of bypass graft of [place] heart with stable angina pectoris Mother Family history of malignant neoplasm of cervix, Onset Age: 63 Social History Social History (Updated 03/28/25 @ 23:21 by Aranza Queen APRN) Social History: Quit cigarettes 2008 but continues to smoke a cigars about 1-2 per day. 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 He is and has 2 children. Code status: Full code Smoking packs per day: 1.5 Smoking cigarettes per day: 30.0 Years smoked: 40 Smoking pack-years: 60.00 Smoking status: Former smoker Second hand tobacco smoke exposure: Yes Smoking end date: 06/14/03 Alcohol intake: former Drinks per week: 12 Alcohol use details: Beers Substance use: never Lack of Transportation: No Lack of Food: Never True Current Housing: I Have Housing Concerned About Future Housing: No Difficulty Paying Gas/Electric Bills: No Difficulty Paying for Meds: No Currently Unemployed: No Education: High School Diploma/GED Difficulty w/ Childcare or Family Care: No Spiritual care concerns: No Anes - Eval Final PreProcedure Day of Procedure 03/29/25 11:11 Patient weight: normal Heart: regular rate and rhythm Lungs: clear to auscultation Airway: Mallampati scale class II Neurological: alert and oriented Last oral intake: >/= 8 hours ASA classification: IV Emergent: no Anesthetic plan: proceed Anesthesia type and monitoring: general GIVS and standard monitoring Results Review: All pre-operative results and documents have been reviewed as part of the pre-operative evaluation. Informed Consent: The patient's anesthetic plan and its attendant risks and benefits were discussed with the patient/family/POA. Questions were solicited and answers provided to the satisfaction of the patient/family/POA.
--- NOTE | 2025-03-29 11:32 | WPDGICN ---
Assessment and Plan Assessment and plan (1) Anorexia: Code(s): R63.0 - Anorexia Status: Acute Assessment and Plan: will proceed with egd to assess if esophageal mass that could explain presentation if we do not find mass then will ask radiologist to get liver biopsy also will need evaluation by oncologist prognosis is guarded (2) Metastasis to liver: Code(s): C78.7 - Secondary malignant neoplasm of liver and intrahepatic bile duct Status: Acute Assessment and Plan: unknown primary ? from esophagus (3) Epigastric pain: Code(s): R10.13 - Epigastric pain Status: Acute (4) Weight loss: Code(s): R63.4 - Abnormal weight loss Status: Acute Assessment and Plan: from metastatic disease (5) Multiple pulmonary nodules: Code(s): R91.8 - Other nonspecific abnormal finding of lung field Status: Acute GI Consult Note Consult date/time: 03/29/25 11:32 Reason for consult: weight loss, metastasis to liver and lung HPI: Darryl Arguello is a 64 year old male with anorexia. He noted unintentional 14 lb weight loss in the last 2 weeks and also intermittent pain in epigastric site that became persistent last 2 weeks (had CT scan last year-only fatty liver). Also loss of appetite. No dysphagia, no nausea. CT of the chest/abdomen/pelvis showed multiple pulmonary nodules and hepatic masses consistent with metastatic disease. Larger subcarinal mass abutting the esophagus which could also represent metastatic lymphadenopathy although also raises suspicion for a primary malignancy arising from the distal esophagus or the intrathoracic stomach with small sliding-type hiatal hernia. Consider ultrasound-guided liver biopsy. 3 cm mass in the right peripheral zone of the enlarged prostate. ER labs Sodium 134, chloride 95, total bilirubin 1.7, AST 149, ALT 107. Never had EGD, colonoscopy about 2 weeks ago. Review of Systems Constitutional: Constitutional: Reports weight loss Eyes: Eyes: Denies blurry vision ENT: Reports Normal hearing present Comments: noted lesion in tongue Cardiovascular: Cardiovascular: Denies chest pain Respiratory: Respiratory: Denies hemoptysis Gastrointestinal: Gastrointestinal: Reports abdominal pain Genitourinary: Genitourinary: Denies dysuria Musculoskeletal: Musculoskeletal: Denies neck pain Integumentary/Breasts: Skin/Breast: Reports skin pain Neurologic: Denies Abnormal speech present Psychiatric: Psychiatric: Denies behavioral changes [facility] Past Medical History Medical History (Updated 03/29/25 @ 12:10 by Callum Mora MD) Weight loss Epigastric pain Metastasis to liver Anorexia Pulmonary nodule History of neck problems History of back problems Testicular hypofunction Hyperlipidemia Sleep apnea, unspecified Surgical History Surgical History History of colonoscopy History of surgery on arm Family History Family History Father Cerebrovascular accident, Onset Age: 65 Sibling Family history of kidney disease, Onset Age: 34 Family history of congestive heart failure, Onset Age: 50 Family history of sleep apnea Coronary artery disease of bypass graft of [place] heart with stable angina pectoris Mother Family history of malignant neoplasm of cervix, Onset Age: 63 Social History Social History (Updated 03/28/25 @ 23:21 by Aranza Queen APRN) Social History: Quit cigarettes 2008 but continues to smoke a cigars about 1-2 per day. 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 He is and has 2 children. Code status: Full code Smoking packs per day: 1.5 Smoking cigarettes per day: 30.0 Years smoked: 40 Smoking pack-years: 60.00 Smoking status: Former smoker Second hand tobacco smoke exposure: Yes Smoking end date: 06/14/03 Alcohol intake: former Drinks per week: 12 Alcohol use details: Beers Substance use: never Lack of Transportation: No Lack of Food: Never True Current Housing: I Have Housing Concerned About Future Housing: No Difficulty Paying Gas/Electric Bills: No Difficulty Paying for Meds: No Currently Unemployed: No Education: High School Diploma/GED Difficulty w/ Childcare or Family Care: No Spiritual care concerns: No Meds Home Medications and Allergies Home Medications ?Medication ?Instructions ?Recorded ?Confirmed ?Type hydrocodone 7.5 mg-acetaminophen 1 tablet PO Q8H PRN pain 04/12/20 03/28/25 History 325 mg tablet ([place]) atorvastatin 20 mg tablet 20 mg PO QHS 04/24/21 03/28/25 History ascorbic acid (vitamin C) 1,000 mg 1,000 mg PO QHS 03/28/25 03/28/25 History tablet (Vitamin C) aspirin 81 mg tablet 81 mg PO QHS 03/28/25 03/28/25 History cinnamon bark 500 mg capsule 500 mg PO QHS 03/28/25 03/28/25 History (Cinnamon) [id number]-[id number]-[id number] tablet 1 tablet PO QHS 03/28/25 03/28/25 History Allergies Allergy/AdvReac Type Severity Reaction Status Date / Time No Known Allergies Allergy Verified 03/29/25 10:58 Vital Signs Vital Signs - 24 hr 03/28/25 14:15 03/28/25 17:05 03/28/25 18:00 Temperature 99.5 F Pulse Rate 91 90 96 Respiratory Rate 20 19 19 Blood Pressure 136/69 148/86 H 148/86 H Pulse Oximetry 98 97 96 Oxygen Delivery Room Air 03/28/25 19:16 03/28/25 21:15 03/28/25 23:00 Temperature 99.2 F Pulse Rate 96 99 Respiratory Rate 16 16 Blood Pressure 149/84 H 135/78 Pulse Oximetry 95 94 Oxygen Delivery Room Air 03/28/25 23:51 03/29/25 02:26 03/29/25 05:35 Temperature 96.4 F L Pulse Rate 89 Respiratory Rate 17 18 Blood Pressure 136/86 Pulse Oximetry 95 Oxygen Delivery Autopap Autopap 03/29/25 10:59 Temperature 98.4 F Pulse Rate 83 Respiratory Rate 16 Blood Pressure 130/73 Pulse Oximetry 94 Oxygen Delivery Room Air Exam Const: General: comfortable and no acute distress HENMT: Other: 6-7 mm ulcer in tongue Eyes: General: appearance normal, both eyes and all related structures Neck: Neck: supple Resp: Auscultation: clear to auscultation bilaterally Cardio: Rate: regular rate Rhythm: regular rhythm GI: Inspection: non-distended GI Palp: Yes Soft to palpation and Yes Tenderness to palpation present (GI) (mild ttp in epigastric) Other: hepatomegaly Skin: General skin exam: normal color Neuro: Speech: normal speech Motor exam (neuro): 5/5 motor strength present throughout Extrem: General: normal to inspection Psych: Mental Status: mental status grossly normal Results Labs 03/28/25 16:18 03/28/25 16:41 Labs: Short CBC 03/28/25 Range/Units 16:18 WBC 8.5 (4.5-10.0) K/mm3 Hgb 14.4 (14.0-18.0) g/dL Hct 46.6 (42.0-52.0) % Plt Count 273 (150-375) k/mm3 BMP 03/28/25 03/28/25 16:18 16:41 Sodium 134 L Potassium 4.4 Chloride 95 L Carbon Dioxide 28 BUN 11 Creatinine 0.84 0.90 Glucose 100 Calcium 9.6 Cardiac Enzymes 03/28/25 Range/Units 16:18 Total Creatine Kinase 91 (55-170) U/L Liver Function 03/28/25 Range/Units 16:18 Total Bilirubin 1.7 H (0.2-1.3) mg/dL AST 149 H (17-59) U/L ALT 107 H (6-50) U/L Alkaline Phosphatase 602 H (38-126) U/L Albumin 4.2 (3.5-5.1) g/dL Urine 03/28/25 Range/Units 17:00 Urine Color Dark yellow (Yellow) Urine Appearance Clear (Clear) Urine pH 6.0 (5.0-9.0) Ur Specific [place] 1.025 (1.001-1.035) Urine Protein Trace (Negative) mg/dL Urine Glucose (UA) Negative (Negative) mg/dL
--- NOTE | 2025-03-29 12:16 | S_PTH ---
PATIENT: Darryl Arguello LOC: [id number] U#:[id number] AGE/SX: 64/M ROOM: 301 RE03/28/[address]: Drea Cutler APRN : 1960 BED: 01 DIS: 03/30/2025 SPEC #: [id number] RECD: 03/29/25 13:27 STATUS: SUHAIL REKwadwo #: [id number] TYSON: 03/29/25 12:[address]: Callum Mora DEPT: [facility] Surgical RECD BY: Cookie Blanco ENTERED: 03/29/25 13:27 SP TYPE: Surgical OTHR DR: MD Diamond Dallas MD Lawrence T. Harmon, MD Drea Cutler APRN Tissues: A - Esophageal Biopsy Procedures: Hematoxylin and Eosin Stain Gross and Microscopic Level 4 HER2 P16
--- NOTE | 2025-03-29 18:49 | WPDONCCN ---
Assessment and Plan Assessment and plan (1) Metastasis to liver: Code(s): C78.7 - Secondary malignant neoplasm of liver and intrahepatic bile duct Status: Acute Assessment and Plan: Patient came into the hospital with abdominal pain and 14 lb weight loss in 2 weeks. He has no previous history of malignancy. CT scan showed multiple pulmonary nodules and hepatic masses as well as subcarinal mass abutting the esophagus could represent metastatic lymphadenopathy. There was also suspicion of primary malignancy arising from the distal esophagus. There was also 3 cm mass in the right peripheral zone of the enlarged prostate. EGD showed malignant appearing mid esophageal mass. Biopsies have been taken. 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 We will wait for the pathology report. After looking at the EGD report I cancel plan for the liver biopsy. PET scan will be done on an outpatient He will follow-up in the office. HPI Data of Consult Date/Time: 03/29/25 18:49 Requesting Physician: Diamond Rockwell MD Primary Care Provider: Jordan Arrieta, Consult Narrative Narrative: Darryl Arguello is a 64 year old male with remote history of smoking 1 pack per day for 20 years duration but quit more than 20 years ago along with history of hyperlipidemia came into the hospital with abdominal pain going on for 3-4 view days duration and unintentional weight loss of about 14 lb in [address] scan was performed that showed multiple pulmonary nodules and hepatic masses consistent with metastatic disease. There was a large subcarinal mass abutting the esophagus which could represent metastatic lymphadenopathy. There was also suspicion of primary malignancy arising from the distal esophagus or intrathoracic stomach. There was 3 cm right peripheral zone of the enlarged prostate. He is complaining of tiredness and fatigue. Denies any diarrhea and constipation. No melena and hematochezia. Denies any previous history of malignancy. Review of Systems Review of Systems: Twelve point review of system was reviewed [facility] Past Medical History Medical History (Updated 03/29/25 @ 12:10 by Callum Mora MD) Weight loss Epigastric pain Metastasis to liver Anorexia Pulmonary nodule History of neck problems History of back problems Testicular hypofunction Hyperlipidemia Sleep apnea, unspecified Surgical History Surgical History History of colonoscopy History of surgery on arm Family History Family History Father Cerebrovascular accident, Onset Age: 65 Sibling Family history of kidney disease, Onset Age: 34 Family history of congestive heart failure, Onset Age: 50 Family history of sleep apnea Coronary artery disease of bypass graft of [place] heart with stable angina pectoris Mother Family history of malignant neoplasm of cervix, Onset Age: 63 Social History Social History (Updated 03/28/25 @ 23:21 by Aranza Queen APRN) Social History: Quit cigarettes 2008 but continues to smoke a cigars about 1-2 per day. 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 He is and has 2 children. Code status: Full code Smoking packs per day: 1.5 Smoking cigarettes per day: 30.0 Years smoked: 40 Smoking pack-years: 60.00 Smoking status: Former smoker Second hand tobacco smoke exposure: Yes Smoking end date: 06/14/03 Alcohol intake: former Drinks per week: 12 Alcohol use details: Beers Substance use: never Lack of Transportation: No Lack of Food: Never True Current Housing: I Have Housing Concerned About Future Housing: No Difficulty Paying Gas/Electric Bills: No Difficulty Paying for Meds: No Currently Unemployed: No Education: High School Diploma/GED Difficulty w/ Childcare or Family Care: No Spiritual care concerns: No Meds Home Medications and Allergies Home Medications ?Medication ?Instructions ?Recorded ?Confirmed ?Type hydrocodone 7.5 mg-acetaminophen 1 tablet PO Q8H PRN pain 04/12/20 03/28/25 History 325 mg tablet ([place]) atorvastatin 20 mg tablet 20 mg PO QHS 04/24/21 03/28/25 History ascorbic acid (vitamin C) 1,000 mg 1,000 mg PO QHS 03/28/25 03/28/25 History tablet (Vitamin C) aspirin 81 mg tablet 81 mg PO QHS 03/28/25 03/28/25 History cinnamon bark 500 mg capsule 500 mg PO QHS 03/28/25 03/28/25 History (Cinnamon) sepywzcjgjvq-okfhbtbw-fhfrnk tablet 1 tablet PO QHS 03/28/25 03/28/25 History Allergies Allergy/AdvReac Type Severity Reaction Status Date / Time No Known Allergies Allergy Verified 03/29/25 10:58 Vital Signs Vital Signs - 24 hr 03/28/25 19:16 03/28/25 21:15 03/28/25 23:00 Temperature 37.3 C Pulse Rate 96 99 Respiratory Rate 16 16 Blood Pressure 149/84 H 135/78 Pulse Oximetry 95 94 Oxygen Delivery Room Air 03/28/25 23:51 03/29/25 02:26 03/29/25 05:35 Temperature 35.8 C L Pulse Rate 89 Respiratory Rate 17 18 Blood Pressure 136/86 Pulse Oximetry 95 Oxygen Delivery Autopap Autopap 03/29/25 10:59 03/29/25 12:19 03/29/25 12:29 Temperature 36.9 C Pulse Rate 83 81 78 Respiratory Rate 16 28 H 26 H Blood Pressure 130/73 105/52 L 98/49 L Pulse Oximetry 94 94 94 Oxygen Delivery Room Air Room Air Room Air 03/29/25 12:39 03/29/25 15:20 Temperature 36.9 C Pulse Rate 86 Respiratory Rate 27 H 18 Blood Pressure 112/63 141/72 H Pulse Oximetry 95 98 Oxygen Delivery Room Air Exam Narrative: Lungs are clear to auscultation bilaterally Cardiovascular regular rate rhythm no murmurs Abdomen soft slightly tender and mildly distended Extremities no edema Results Labs 03/28/25 16:18 03/28/25 16:41
[2025-03-29] MEDS: HYDROcodone/acetaminophen (*CRX) 10-325 MG TABLET 2 TAB PO (20:12)
[2025-03-29 21:57] LABS: Prostate Specific Antigen 2.3 ng/mL (< OR = 4.0)
[2025-03-30] MEDS: SODIUM CHLORIDE 0.9% IV 1,000 ML 125 ML IV CONT (03:25)
[2025-03-30 07:01] VITALS: BP 113/68; PULSE 91; RESP 16; TEMP 36.5; O2SAT 97
--- NOTE | 2025-03-30 07:03 | P.CDI_ITS ---
CDI Query Clarification Request BMI: 28.6 Nutritional Diagnostic Statement: Please refer to the comprehensive nutrition assessment for further information. If you agree with diagnosis of Moderate protein calorie malnutrition related to chronic nausea, loss of appetite as evidenced by weight loss -6%/2 months; intakes <75% needs >1 month; moderate muscle wasting and fat loss. Please specify severity if known: * Mild * Moderate * Severe * Other/Unknown <Kae Falcon RN - Last Filed: 03/30/25 07:04> Clarified Diagnosis Clarified Diagnosis: Moderate <Drea Cutler APRN - Last Filed: 03/30/25 09:10>
--- NOTE | 2025-03-30 07:17 | P.PNGI_ITS ---
Progress Note: A&P Assessment and Plan (1) Esophageal mass: Code(s): K22.89 - Other specified disease of esophagus Status: Acute Assessment and Plan: this is most likely primary tumor, mets to liver patient and family prefer to start management at [facility] after leaving hospital, will place a referral (2) Metastasis to liver: Code(s): C78.7 - Secondary malignant neoplasm of liver and intrahepatic bile duct Status: Acute (3) Epigastric pain: Code(s): R10.13 - Epigastric pain Status: Acute (4) Weight loss: Code(s): R63.4 - Abnormal weight loss Status: Acute Subjective Date/time seen: 03/30/25 07:17 Interval history: no changes egd yesterday with large mass in distal esophagus s/p biopsies Review of Systems Review of Systems: All systems reviewed & are unremarkable except as noted in HPI and below Exam Const: General: comfortable and no acute distress HENMT: Other: 6-7 mm ulcer in tongue Eyes: General: appearance normal, both eyes and all related structures Neck: Neck: supple Resp: Auscultation: clear to auscultation bilaterally Cardio: Rate: regular rate Rhythm: regular rhythm GI: Inspection: non-distended GI Palp: Yes Soft to palpation and Yes Tenderness to palpation present (GI) (mild ttp in epigastric) Other: hepatomegaly Skin: General skin exam: normal color Neuro: Speech: normal speech Motor exam (neuro): 5/5 motor strength present throughout Extrem: General: normal to inspection Psych: Mental Status: mental status grossly normal Objective Data Vital Signs Vital Signs: Vital Signs - 24 hr 03/29/25 10:59 03/29/25 12:19 03/29/25 12:29 Temperature 98.4 F Pulse Rate 83 81 78 Respiratory Rate 16 28 H 26 H Blood Pressure 130/73 105/52 L 98/49 L Pulse Oximetry 94 94 94 Oxygen Delivery Room Air Room Air Room Air 03/29/25 12:39 03/29/25 15:20 03/29/25 20:47 Temperature 98.4 F Pulse Rate 86 Respiratory Rate 27 H 18 Blood Pressure 112/63 141/72 H Pulse Oximetry 95 98 Oxygen Delivery Room Air Room Air 03/29/25 22:00 03/30/25 07:01 Temperature 98.0 F 97.7 F Pulse Rate 87 91 Respiratory Rate 14 16 Blood Pressure 124/74 113/68 Pulse Oximetry 95 97 Oxygen Delivery Intake/Output Intake/Output: Intake & Output 03/27/25 03/28/25 03/29/25 03/30/25 23:59 23:59 23:59 23:59 Intake Total 2366.7 735.4 Balance 2366.7 735.4 Meds/Results Medications: Active Medications Generic Name Dose Route Start Last Admin Trade Name Freq PRN Reason Stop Dose Admin Acetaminophen 650 mg 03/28/25 18:50 Acetaminophen 325 Mg Tablet PO Q4H PRN Mild Pain (1-3) or Fever Hydrocodone Bitart/Acetaminophen 2 tab 03/29/25 14:10 03/29/25 20:12 Hydrocodone/Acetaminophen (*Crx) 10-325 Mg Tablet PO 2 tab Q4H PRN Administration Pain Rated 7-10 Famotidine 20 mg 03/29/25 09:00 03/29/25 20:12 Famotidine 20 Mg/2 Ml Vial IV PUSH 20 mg Q12HR [place] Administration Hydromorphone HCl 0.5 mg 03/28/25 23:11 Hydromorphone Hcl Inj (*Crx) 1 Mg/Ml Syr IV PUSH Q3H PRN Pain Rated 7-10 IF NPO Sodium Chloride 1,000 mls @ 125 mls/hr 03/28/25 18:50 03/30/25 06:02 Normal Saline Iv IV CONT 125 mls/hr .Q8H [place] Infusion Ondansetron HCl 4 mg 03/28/25 18:50 03/28/25 19:15 Ondansetron Inj 4 Mg/2 Ml Vial IV PUSH 4 mg Q4H PRN Administration Nausea Pantoprazole Sodium 40 mg 03/30/25 09:00 Pantoprazole 40 Mg Tablet PO QAM [facility] Radiology Results: ITS Impressions Chest/Abdomen/Pelvis CT 03/28/25 17:01 IMPRESSION: 1. Multiple pulmonary nodules and hepatic masses consistent with metastatic disease. As a larger subcarinal mass abutting the esophagus which could also represent metastatic lymphadenopathy although also raises suspicion for a primary malignancy arising from the distal esophagus or the intrathoracic stomach with small sliding-type hiatal hernia. Consider ultrasound-guided liver biopsy. 2. 3 cm mass in the right peripheral zone of the enlarged prostate. Correlate with PSA level. Labs Labs: Laboratory Results - last 24 hr 03/29/25 20:46 Prostate Specific Ag 2.3
[2025-03-30] MEDS: HYDROcodone/acetaminophen (*CRX) 10-325 MG TABLET 2 TAB PO (07:39)
[2025-03-30] MEDS: PANTOPRAZOLE 40 MG TABLET PO (08:14)
[2025-03-30] MEDS: FAMOTIDINE 20 MG/2 ML VIAL IV PUSH (08:14)
--- NOTE | 2025-03-30 08:52 | P.DS_ITS ---
DS: Admitting Diagnosis Discharge Date 03/30/2025 Admitting Diagnosis Weight loss DS: Discharge Diagnosis Discharge Diagnosis (1) Esophageal mass: Code(s): K22.89 - Other specified disease of esophagus Status: Acute Assessment and Plan: -CT was read as the following Multiple pulmonary nodules and hepatic masses consistent with metastatic disease. As a larger subcarinal mass abutting the esophagus which could also represent metastatic lymphadenopathy although also raises suspicion for a primary malignancy arising from the distal esophagus or the intrathoracic stomach with small sliding-type hiatal hernia. Consider ultrasound-guided liver biopsy. 2. 3 cm mass in the right peripheral zone of the enlarged prostate. Correlate with PSA level. -the patient has had an unintentional 14 lb weight loss in the last 2 weeks. -GI has been consult for possible EGD. -the patient was made NPO after midnight. -the patient also has multiple liver masses as well as multiple pulmonary nodules. 03/30: Per GI today: this is most likely primary tumor, mets to liver patient and family prefer to start management at [facility] after leaving hospital, will place a referral Pt to be discharged today with onc f/u for PET scan. Pt with wishes to pursue treatment at [facility]. (2) Liver masses: Code(s): R16.0 - Hepatomegaly, not elsewhere classified Status: Acute Assessment and Plan: - Multiple pulmonary nodules and hepatic masses consistent with metastatic disease. As a larger subcarinal mass abutting the esophagus which could also represent metastatic lymphadenopathy although also raises suspicion for a primary malignancy arising from the distal esophagus or the intrathoracic stomach with small sliding-type hiatal hernia. Consider ultrasound-guided liver biopsy. 2. 3 cm mass in the right peripheral zone of the enlarged prostate. Correlate with PSA level. -may consider ultrasound-guided liver biopsy. -liver enzymes elevated. -pain management. Pt to be discharged today with onc f/u for PET scan and potential liver biopsy. Pt with wishes to pursue treatment at [facility]. (3) Sleep apnea, unspecified: Code(s): G47.30 - Sleep apnea, unspecified Status: Acute Assessment and Plan: -Home settings for CPAP (4) Hyperlipidemia: Code(s): E78.5 - Hyperlipidemia, unspecified Status: Acute Assessment and Plan: Statin on hold at this time due to elevated LFTs, pt aware. Plan Pt to be discharged today with onc f/u for PET scan. Pt with wishes to pursue treatment at [facility]. DS: Summary Hospital Course Reason for hospitalization: Weight loss Hospital Course: 64-year-old male presenting to the emergency department with vague abdominal complaints including early satiety, lack of appetite, epigastric palpable mass, nauseousness, dark urine, unintentional 14 lb weight loss in 2 weeks. Recently been seen by his primary doctor for lesion on his tongue which is scheduled to be biopsied and excised on outpatient basis in the coming few days. Denies any fever, chills, night sweats. No history of malignancy or strong family history of malignancy. Denies any current smoking use. Previously drank alcohol but no longer. Denies any drug use. Has not tried anything for symptom control at home. Examination shows some concerning abdominal findings including mildly distended abdomen but soft. Tender in the epigastrium with a palpable epigastric mass. Hepatomegaly palpable approximately 4 cm below the right costal edge. Tenderness reproducible right rib cage but no overlying skin changes. No overlying deformity or step-off. Patient is hemodynamically stable. No signs of icterus or jaundice examination. He is awake alert oriented and mentating appropriately. Given his vague complaints as well as weight loss and abdominal findings concern for malignancy is high. Discussed this with the patient and will obtain a broad workup including CT scans of the chest abdomen pelvis with IV contrast will laboratory studies urinalysis ordered. CT scan was independently reviewed and appears to have multiple nodule risen metastatic disease evident. Radiology confirms subcarinal mass likely esophageal malignancy with metastatic lymphadenopathy as well as diffuse pulmonary nodules and hepatic masses. No leukocytosis. Elevated liver function panel likely secondary to the metastatic disease. I updated the patient and the family members regarding the findings on my concern for metastatic malignancy in cancer based on findings and historical features. Discussed the case with the oncologist Dr. John ferrara as well as the GI doctor Dr. Yepez regarding plan of care. Patient will be made NPO for a endoscopy and possible biopsy tomorrow morning. Spoke to the hospitalist who accepted the patient to a [facility] for admission and evaluation tomorrow by specialists from multiple teams. Discussed multiple options and treatment plans with the family members and goals of care. They would like to pursue treatment options and admission for biopsy and remaining evaluation. While inpt, pt was seen by GI and underwent an EGD where an esophageal mass was found. Pt also seen by oncology and made a plan to f/u with them outpatient for a PET scan and a possible liver biopsy. Pt pain medications increased to Sutton 10mg due to his discomfort, he will also go home with a supply for this as well as narcan. Pt also reporting pain with a PPI, pantoprazole also rx upon discharge. Pt with wishes to pursue treatment at [facility] following initial onc f/u. Pt to be discharged today with above plan. Status at Discharge Overall status at discharge: patient is not back to baseline Time Spent with Patient Time attestation: Total time spent providing and/or coordinating discharge services: 45 Exam Const: General: cooperative, comfortable, no acute distress, well developed, awake, Physically active, uncomfortable, average body habitus and well nourished Nutritional Appearance: average body habitus and well nourished Orientation/consciousness: oriented to person, oriented to place, oriented to time and patient oriented x3 Limitations: no limitations HENMT: Head: normal to inspection, No palpable skull fracture present, normocephalic and atraumatic Eyes: General: appearance normal, both eyes and all related structures Alignment and Position: alignment normal Periorbital: periorbital findings normal Neck: Neck: normal visual inspection and full ROM Chest: Chest palpation & inspection: normal inspection of the chest Resp: Effort & Inspection: normal respiratory effort Auscultation: clear to auscultation bilaterally Cardio: Palpation: normal PMI Rate: regular rate Rhythm: regular rhythm Heart sounds: S1 normal heart sound present and S2 normal heart sound present Peripheral pulses: Peripheral pulses 2+ throughout GI: Inspection: normal to inspection Auscultation: normal bowel sounds Other: palpable mass under sternal bone : General: Yes no CVA tenderness Back/Spine/Pelvis: Back: no CVA tenderness Skin: General skin exam: normal color Lesions: no lesions Rashes: no rashes Trauma: no lacerations or abrasions Wounds: no wounds Hair: normal Nails: normal Neuro: General: oriented to person, oriented to place, oriented to time and patient oriented x3 Cranial nerves: Yes Normal hearing present Cognition (Neuro): normal cognition Speech: normal speech Gait exam (Neuro): Normal gait present Motor exam (neuro): 5/5 motor strength present throughout and Normal motor muscle tone present throughout Sensory Exam: normal sensation Extrem: General: normal to inspection Right upper extremity: normal to inspection and shoulder/upper arm Left upper extremity: normal to inspection and shoulder/upper arm Right lower extremity: normal to inspection Left lower extremity: normal to inspection Psych: Appearance: grossly normal Mental Status: mental status grossly normal Speech and movement: Normal speech and movement present Affect: normal affect Attitude: cooperative Thought process: Normal thought process present Insight: Good insight present (Psych) Judgement: Good j udgement present (Psych) DS: Data Data Completed and Pending Completed studies during hospitalization: labs, C/A/P CT Pending studies at discharge: Pending at discharge 03/29/25 12:16 Surgical [PTH] Routine Labs on day of discharge: Labs from last 24 hours 03/29/25 20:46 Prostate Specific Ag 2.3 Imaging Radiologist's impression: C/A/P CT: IMPRESSION: 1. Multiple pulmonary nodules and hepatic masses consistent with metastatic disease. As a larger subcarinal mass abutting the esophagus which could also represent metastatic lymphadenopathy although also raises suspicion for a primary malignancy arising from the distal esophagus or the intrathoracic stomach with small sliding-type hiatal hernia. Consider ultrasound-guided liver biopsy. 2. 3 cm mass in the right peripheral zone of the enlarged prostate. Correlate with PSA level. Discharge Plan Discharge Attending physician on discharge: Lanre Meredith Consulting providers: Drea Cutler; Ori Wood Discharging Clinician: Drea Cutler Anticipated Discharge Date/Time: 03/30/25 11:00 Patient Disposition: Home Activity: may shower Diet: regular Discharge Instructions: 1. Make a follow-up appt with Dr. Wood if you have not already (phone number attached again if you need it) so you can get scheduled for a PET scan and [facility] referral (the GI physician, Dr. Yepez also said that he would place a referral as well for this). 2. I have written you for pain medication (Sutton) for a few weeks. This has acetaminophen (Tylenol) in it as well, so do not take extra acetaminophen while taking this medication. Since this is a longer duration of pain medication, I am also sending you home with a Narcan prescription too, this medication is used in case too much of this pain medication is taken and it will reverse it. There will be extensive directions on how to use this once you pick it up from the pharmacy. 3. I am also writing you for the medication that reduces acid for your esophagus. You were on 2 types of this medication, one in your IV and one by mouth. The stronger of these meds is the one by mouth and you only need to take this one. It is called Pantoprazole. If you were to ever run out, you can take omeprazole that is over the counter, this is the same type of medication. It was a pleasure caring for you! Please take care, and good luck! -Drea Patient Instructions: Hydrocodone/Acetaminophen (By mouth), Pantoprazole (By mouth), Naloxone (Into the nose) Patient Language: Chinese Stand Alone Forms: General Discharge Information Follow-up/Referrals: Ori Wood MD [Physician, Hematology] - 1 Week Discharge Medications: New pantoprazole 40 mg Tablet,Delayed Release (Dr/Ec) 40 mg PO QAM 90 Days Qty: 90 1RF naloxone [Narcan] 4 mg/actuation spray,non-aerosol 1 spray intranasal Q2M Qty: 2 1RF Rx Instructions: spray 1 dose into ONE nostril; alternate nostrils w each dose until help arrives hydrocodone-acetaminophen 10-325 mg tablet 1 tablet PO Q4H PRN (Reason: pain) Qty: 80 0RF Continued atorvastatin 20 mg tablet 20 mg PO QHS [id number]-[id number] Tablet 1 tablet PO QHS ascorbic acid (vitamin C) [Vitamin C] 1,000 mg tablet 1,000 mg PO QHS aspirin 81 mg tablet 81 mg PO QHS cinnamon bark [Cinnamon] 500 mg capsule 500 mg PO QHS Discontinued hydrocodone-acetaminophen [[place]] 7.5-325 mg tablet 1 tablet PO Q8H PRN (Reason: pain) Date of admission: 03/28/25 18:50 Primary Care Provider: Emerald[facility] Admitting Provider: Diamond Rockwell Attending physician on admission: Diamond Rockwell Condition: Stable Quality VTE Prophylaxis VTE prophylaxis: mechanical ordered Hospitalist MIPS Heart Failure (Exclusion) Patient has history of Heart Transplant or Left Ventricular Assistive Device?: No IF YES, STOP HERE Heart Failure (Qualifier) Patient has current or prior documentation of LVEF less than or equal to 40%, or mod/servere depressed LVSF?: No IF NO, STOP HERE
== END 2025-03-30 10:35 | disposition home or self-care (01) | DRG 375 ==
LOC: ANHED 18:58 → ANH3MEDSUR 19:37
PROVIDERS: Internal Medicine Gastroenterology; Internal Medicine Hematology & Oncology; Admitting Provider Family Medicine; Emergency Provider Student in an Organized Health Care Education/Training Program; PCP Internal Medicine
PROC: 0DJ08ZZ Inspection of Upper Intestinal Tract, Via Natural or Artificial Opening Endoscopic (ICD-10-PCS; principal; 2025-03-29 16:30)
DX: C15.4 Malignant neoplasm of middle third of esophagus (principal); C78.7 Secondary malignant neoplasm of liver and intrahepatic bile duct; E44.0 Moderate protein-calorie malnutrition; R91.8 Other nonspecific abnormal finding of lung field; E78.5 Hyperlipidemia, unspecified; G47.33 Obstructive sleep apnea (adult) (pediatric); F17.290 Nicotine dependence, other tobacco product, uncomplicated; K44.9 Diaphragmatic hernia without obstruction or gangrene; N42.9 Disorder of prostate, unspecified; N40.0 Benign prostatic hyperplasia without lower urinary tract symptoms; Z68.28 Body mass index [BMI] 28.0-28.9, adult; Z99.89 Dependence on other enabling machines and devices; Z79.82 Long term (current) use of aspirin
CPT/HCPCS: 36415; 71260; 74177; 80053; 81001; 82550; 83690; 84153; 85025; 85610; 85730; 88305; 88342; 99285; A9270; J2270; J2405; J2704; J7030; J7120; Q9967